=== PATIENT | female | born 1955 | race African-American/Black ===

== ENCOUNTER 2017-09-20 05:45 | Day surgery (SDC) | payer OTHER ==
[2017-09-19 13:54] LABS: BASOPHILS 0.1 % (0-2); EOSINOPHILS 0 % (0-7); HEMATOCRIT 28.6 % (36.0-48.0); HEMOGLOBIN 9.5 g/dL (12-16); IMMATURE GRANULOCYTES 1.4 % (0-5); MCH 28.4 pg (26.0-34.0); MCHC 33.2 g/dL (31.0-37.0); MCV 85.4 fL (80.0-100.0); MEAN PLATELET VOLUME 10.4 fL (7.4-10.4); MONOCYTES 8.9 % (2-11); NEUTROPHILS 79.6 % (40-80); PLATELET COUNT 289 10x3/uL (130-400); RBC 3.35 10x6/uL (4.00-5.40); RDW 14.2 % (11.5-14.5); WBC 9.1 10x3/uL (4.8-10.8)
[2017-09-19 14:05] LABS: INR 0.99 (0.85-1.17); PROTIME 12.7 SECONDS (11.6-15.0)
[2017-09-19 14:32] LABS: ANION GAP 18.1 mmol/L (8-16); CALCIUM 8.5 mg/dL (8.5-10.1); CARBON DIOXIDE 20.6 mmol/L (21.0-32.0); POTASSIUM - SERUM 3.7 mmol/L (3.5-5.1)
[~2017-09-20] VITALS: Ht 171.4 cm; Wt 81.6 kg
--- NOTE | ~2017-09-20 | OP ---
PATIENT NAME: SHILO ARREOLA MEDICAL RECORD: [id number] :51 LOCATION:D[facility] ADMISSION DATE: SURGEON: SERA BARBER MD DATE OF OPERATION: 09/20/2017 REFERRED PHYSICIAN: Ovidio Serrato MD PREOPERATIVE DIAGNOSIS: End-stage renal disease. POSTOPERATIVE DIAGNOSIS: End-stage renal disease. OPERATION PERFORMED: Creation of a Shanta right brachiobasilic arteriovenous fistula as a first stage of a planned 2-stage operation to create a right brachial translocated basilic AV fistula. DESCRIPTION OF PROCEDURE: Under general anesthesia and the regional nerve block per Dr. Swanson, the patient was prepped and draped in sterile manner. Topical nitroglycerin was applied to the arm and forearm and a Brian drain used as a proximal venous tourniquet. The readily apparent veins on gross examination were quite small. I examined her with Duplex ultrasound and I was disappointed to see that the cephalic vein was not usable. The basilic vein was the primary superficial venous drainage and I felt that a brachial to translocated basilic vein AV fistula would be the best choice for this patient. I made an incision on the medial aspect of the arm and elbow and exposed the basilic vein and fully mobilized a segment of about 2 inches in length. It was treated with topical papaverine. The ultrasound exam demonstrated 2 arteries of about the same caliber in the arm, I believe this represents a proximal origin of the radial artery and that vessel was then exposed above the level of the antecubital space. It was in the neurovascular bundle just deep to the median nerve. It was controlled with Silastic loops. The vein was ligated distally and transected and bevelled. It was then flushed with heparinized saline, treated again with topical papaverine. The artery was opened and flushed proximally and distally with heparinized saline and end of vein to side of artery anastomosis with running 7-0 Prolene was completed. The suture line was hemostatic upon release of the occluding clamps and excellent flow developed immediately as evidenced by good continuous pulsatile Doppler signal and strong palpable thrill. The wound was irrigated with Ancef/gentamicin solution and then closed with interrupted inverted 3-0 Vicryl and running intracuticular 4-0 Monocryl. The skin was sealed with Dermabond glue. Cavilon skin prep was used and Tegaderm over Maxorb AG. At that point, the patient was awakened and taken to the recovery room in stable condition. Blood loss during the operation was insignificant and unreplaced and all sponges, instruments, and needles were accounted for. No surgical specimen was submitted for histopathology. PLAN: The patient will go home today and follow up with me in my office in about 2 weeks and I hope to have her back in the operating room in 3-4 weeks for the second stage to complete the translocated basilic vein fistula. She is given a prescription for tramadol to take for postoperative pain. She is to leave the original operative dressing intact and she can shower and wash over with soap and water. TRANSINT:[id number] Voice Confirmation ID: [id number] DOCUMENT ID: [id number] OPERATIVE REPORT [id number] SHILO ARREOLA JAMES MD at 1410 CC: [id number] DICTATION DATE: 09/20/17 1144 [place] TOWER LOADER: 09/20/17 1212 [facility] 09/20/17 [place] [address] [place] [address]
[~2017-09-20 05:45] MED LIST: CATAPRES0.2 MG PO; CELEXA20 MG PO; COZAAR100 MG PO; METOPROLOL TART50 MG PO; NORVASC10 MG PO; SODIUM BICARBO650 MG PO; VELTASSA8.4 GM PO; VITAMIN D31000 UNI2 PO
[2017-09-20] MEDS ORDERED: FEXOFENADINE HC60 MG PO (06:48)
[2017-09-20] MEDS ORDERED: BENADRYL25 MG PO (06:48)
[2017-09-20 06:55] VITALS: BP 151/76; BMI 27.8
[2017-09-20] MEDS ORDERED: ULTRAM50 MG PO (09:55)
[2017-09-27 08:38] VITALS: Ht 171.4 cm; Wt 81.6 kg
== END 2017-09-20 11:35 | disposition home or self-care (01) ==
LOC: D.OPS 05:45
PROVIDERS: Surgery
DX: I12.0 Hypertensive chronic kidney disease with stage 5 chronic kidney disease or end stage renal disease (principal); N18.6 End stage renal disease

== ENCOUNTER 2017-09-24 20:18 | Inpatient (IN) | payer OTHER ==
[~2017-09-24] VITALS: Ht 171.4 cm; Wt 87.7 kg
[~2017-09-24 20:18] MED LIST changes: +BENADRYL25 MG PO; +FEXOFENADINE HC60 MG PO; +ULTRAM50 MG PO
[2017-09-25] VITALS (7 sets, daily range): BP systolic 115–152; BP diastolic 53–85; BMI 27.8
[2017-09-25 03:40] LABS: APPEARANCE HAZY (CLEAR); BILIRUBIN NEGATIVE (NEGATIVE); COLOR YELLOW (YELLOW); GLUCOSE NEGATIVE (NEGATIVE); KETONE NEGATIVE (NEGATIVE); NITRITE NEGATIVE (NEGATIVE); PROTEIN 3+ mg/dL (NEGATIVE); SPECIFIC GRAVITY 1.015 (1.005-1.020); UROBILINOGEN NORMAL (NORMAL)
[2017-09-25 03:43] LABS: AMORPHOUS SEDIMENT <1+ /lpf (NONE SEEN); BACTERIA MODERATE /hpf (NONE SEEN); GRANULAR CAST 0-5 /lpf (NONE SEEN); HYALINE CAST 0-5 /lpf (NONE SEEN); RED CELLS - URINE OCC /hpf (0-5)
[2017-09-25 06:37] LABS: BASOPHILS 0.5 % (0-2); EOSINOPHILS 3.3 % (0-7); HEMATOCRIT 23.4 % (36.0-48.0); HEMOGLOBIN 7.6 g/dL (12-16); IMMATURE GRANULOCYTES 0.5 % (0-5); LYMPHOCYTES 25.8 % (15-50); MCHC 32.5 g/dL (31.0-37.0); MCV 86.3 fL (80.0-100.0); MONOCYTES 11.1 % (2-11); NEUTROPHILS 58.8 % (40-80); PLATELET COUNT 197 10x3/uL (130-400); RBC 2.71 10x6/uL (4.00-5.40); RDW 15.1 % (11.5-14.5); WBC 4.2 10x3/uL (4.8-10.8)
[2017-09-25 10:29] LABS: ANION GAP 17.4 mmol/L (8-16); CALCIUM 7.3 mg/dL (8.5-10.1); CARBON DIOXIDE 18.6 mmol/L (21.0-32.0); CREATININE - SERUM 5.4 mg/dL (0.6-1.3)
[2017-09-25 12:29] LABS: APTT 24.7 SECONDS (22.8-39.4); INR 1.11 (0.85-1.17); PROTIME 13.9 SECONDS (11.6-15.0)
[2017-09-25 12:31] LABS: D-DIMER-QUANTITATIVE 2.22 ug/mLFEU (0.20-0.54)
[2017-09-25 13:03] LABS: CKMB 2.2 U/L (0.0-3.6); CREATINE KINASE 138 UL (21-215); MAGNESIUM - SERUM 2.2 mg/dL (1.8-2.4)
[2017-09-25 13:05] LABS: TROPONIN-I 1.555 ng/mL (0.000-0.060)
[2017-09-25 13:58] LABS: % SATURATION 15 % (15-55); IRON 36 ug/dl (35-150); TOTAL IRON BIND CAPACITY 229 ug/dl (260-445); UNSAT IRON BIND CAPACITY 193 ug/dl (150-375)
[2017-09-25 15:39] LABS: CHOL - HDL RATIO 5.5 ratio (2.3-4.1); LDL-HDL RATIO 3.8 ratio (1.5-3.5)
[2017-09-25 18:59] LABS: CKMB 1.9 U/L (0.0-3.6); CREATINE KINASE 102 UL (21-215)
[2017-09-25 19:01] LABS: TROPONIN-I 1.297 ng/mL (0.000-0.060)
[2017-09-26 00:45] LABS: CKMB 2.7 U/L (0.0-3.6); CREATINE KINASE 151 UL (21-215); TROPONIN-I 1.588 ng/mL (0.000-0.060)
[2017-09-26 05:31] LABS: BASOPHILS 0.2 % (0-2); EOSINOPHILS 1.8 % (0-7); IMMATURE GRANULOCYTES 0.5 % (0-5); LYMPHOCYTES 15.8 % (15-50); MCH 28.6 pg (26.0-34.0); MCHC 33.3 g/dL (31.0-37.0); MCV 85.7 fL (80.0-100.0); MEAN PLATELET VOLUME 9.9 fL (7.4-10.4); MONOCYTES 10.3 % (2-11); NEUTROPHILS 71.4 % (40-80); PLATELET COUNT 208 10x3/uL (130-400); RDW 14.7 % (11.5-14.5)
[2017-09-26 05:52] LABS: INR 1.06 (0.85-1.17); PROTIME 13.4 SECONDS (11.6-15.0)
[2017-09-26 06:04] LABS: ANION GAP 18.4 mmol/L (8-16); CALCIUM 8.3 mg/dL (8.5-10.1); CARBON DIOXIDE 20.3 mmol/L (21.0-32.0); CREATININE - SERUM 5.4 mg/dL (0.6-1.3); PHOSPHOROUS 3.8 mg/dL (2.5-4.9); POTASSIUM - SERUM 3.7 mmol/L (3.5-5.1)
[2017-09-26 06:22] LABS: WBC 5.7 10x3/uL (4.8-10.8)
[2017-09-26 08:34] VITALS: BP 181/74
[2017-09-26 12:24] VITALS: BP 159/61
[2017-09-26 13:58] VITALS: BMI 29.8
[2017-09-26 16:34] VITALS: BP 149/61
[2017-09-27] VITALS (8 sets, daily range): BP systolic 124–188; BP diastolic 62–84; Ht 171.4 cm; Wt 87.7 kg
[2017-09-27 05:39] LABS: BASOPHILS 0.1 % (0-2); EOSINOPHILS 2.1 % (0-7); HEMATOCRIT 22.6 % (36.0-48.0); IMMATURE GRANULOCYTES 0.4 % (0-5); MCH 28.4 pg (26.0-34.0); MCHC 33.2 g/dL (31.0-37.0); MCV 85.6 fL (80.0-100.0); MEAN PLATELET VOLUME 10.3 fL (7.4-10.4); MONOCYTES 8.4 % (2-11); PLATELET COUNT 196 10x3/uL (130-400); RBC 2.64 10x6/uL (4.00-5.40); RDW 14.8 % (11.5-14.5)
[2017-09-27 05:47] LABS: HEMOGLOBIN 7.5 g/dL (12-16); WBC 7.7 10x3/uL (4.8-10.8)
[2017-09-27 05:55] LABS: ANION GAP 16.4 mmol/L (8-16); CALCIUM 7.9 mg/dL (8.5-10.1); CARBON DIOXIDE 23.4 mmol/L (21.0-32.0); CREATININE - SERUM 5.3 mg/dL (0.6-1.3); POTASSIUM - SERUM 3.8 mmol/L (3.5-5.1)
[2017-09-27] MEDS ORDERED: LASIX40 MG PO (15:15)
== END 2017-09-27 16:38 | disposition home or self-care (01) | DRG 291 ==
LOC: D.M2 20:18
PROVIDERS: Internal Medicine Nephrology
DX: I13.2 Hypertensive heart and chronic kidney disease with heart failure and with stage 5 chronic kidney disease, or end stage renal disease (principal); I50.33 Acute on chronic diastolic (congestive) heart failure; N18.5 Chronic kidney disease, stage 5; N17.9 Acute kidney failure, unspecified; N39.0 Urinary tract infection, site not specified; J81.1 Chronic pulmonary edema; D64.9 Anemia, unspecified

== ENCOUNTER 2017-10-19 02:15 | Inpatient (IN) | payer OTHER ==
[~2017-10-19] VITALS: Ht 171.4 cm; Wt 79.6 kg
--- NOTE | ~2017-10-19 | TEE ---
PATIENT:SHILO ARREOLA MEDICAL RECORD: [id number] LOCATION:[place] [address] AGE OF PATIENT: 62 ADMISSION DATE: 10/19/17 SEX: F REFERRING PHYSICIAN: INTERPRETING PHYSICIAN: MELISSA COLORADO MD TRANSESOPHAGEAL ECHOCARDIOGRAM Date: 11/04/17 JAIRON CHARGE Y INDICATIONS: CABG & AVR PREMEDICATIONS: PATIENT'S RESPONSE PROCEDURE DOPPLER MEASUREMENTS: LVIT LA PA 171 RA LVOT RVOT 115 Asc. Ao AV Gradient Peak AV Mean AV Area MV Gradient Peak MV Mean MV Area INTERPRETATION: LVD: 3.7 LVS: 1.4 Doppler: 2-D: COLOR FLOW DOPPLER NORMAL SALINE STUDY: MISCELLANOUS: DIAGNOSIS: PLAN: Mrp Controller:1 Dr. [place] Hardwood Floor Installer: Julisa CHESTER COMMENTS: DATE OF SERVICE: PROCEDURE: Transesophageal echo evaluation of valvular structures during bypass surgery and mitral valve replacement. FINDINGS: 1. Left ventricular chamber size is within normal limits. Left ventricular systolic function is normal. Overall ejection fraction is estimated at 55%. 2. Left atrium, right atrium, and right ventricle chamber sizes are TRANSESOPHAGEAL ECHOCARDIOGRAM REPORT [id number] SHILO ARREOLA [id number] dilated. 3. Valvular structures have normal structure and motion. 4. Doppler interrogation reveals severe mitral regurgitation. This is not a new finding. The patient is scheduled for valve replacement. Else ashley, Doppler interrogation only reveals mild tricuspid regurgitation. No other valvular insufficiency or stenosis. 5. No evidence of pericardial effusion or left ventricular thrombus. TRANSINT:[id number] Voice Confirmation ID: [id number] DOCUMENT ID: [id number] at 1642 CC: [id number] DICTATION DATE: 11/06/17 1156 ENERGY CONSERVATION SPECIALIST: 11/06/17 1311 ADM IN [place] [id number] [place] [address]
--- NOTE | ~2017-10-19 | PN ---
PATIENT:SHILO ARREOLA MEDICAL RECORD: [id number] LOCATION:[facility] Alvares.CV0 ADMISSION DATE: 10/19/17 PROGRESS NOTE DATE OF SERVICE: 10/27/2017 This is a 62-year-old female who has a history of renal failure. SUBJECTIVE: The patient was admitted with increasing shortness of breath and she was noted to have right pleural effusion. The patient had thoracentesis with improvement. The patient was transferred from to the ICU to medical floor. There is no cough and there is no shortness of breath. There is no fever. There is no orthopnea. The patient's chest x-ray after thoracentesis shows significant improvement. PHYSICAL EXAMINATION: GENERAL: Reveals well-developed, well-nourished female, who is in no acute distress. VITAL SIGNS: Temperature 98.8, heart rate of 66, respiratory rate of 16, blood pressure 185/45, and saturation is 100%. HEENT: Unremarkable. NECK: Supple. There is no adenopathy. There is no stridor. CHEST: Clear and coughing. There are no wheezes or crackles. CARDIAC: Shows no jugular venous distention, murmur or gallops. ABDOMEN: Benign. EXTREMITIES: There is no clubbing, cyanosis or edema. LABORATORY DATA: Showed white count of 5.9, hemoglobin 10.3 and platelet count is 106,000. Chemistries remarkable for creatinine of 4.1, BUN of 39. Potassium is 4. ASSESSMENT: 1. Chronic renal disease, stage IV. 2. Right pleural effusion, probably secondary to volume overload. PLAN: We will sign off on this patient. If there is any problem, please call the pulmonary team. TRANSINT:[id number] Voice Confirmation ID: [id number] DOCUMENT ID: [id number] DARRYL FOSTER at 0752 CC: [id number] DICTATION DATE: 10/27/171744 MOLD MAKER: 10/27/172057 [place] [address]
--- NOTE | ~2017-10-19 | TEE ---
PATIENT:SHILO ARREOLA MEDICAL RECORD: [id number] LOCATION:[facility] D230 AGE OF PATIENT: 62 ADMISSION DATE: 10/19/17 SEX: F REFERRING PHYSICIAN: INTERPRETING PHYSICIAN: NOHEMI BRINK MD TRANSESOPHAGEAL ECHOCARDIOGRAM Date: 10/21/17 JAIRON CHARGE Y INDICATIONS: MR, PREMEDICATIONS: PATIENT'S RESPONSE PROCEDURE DOPPLER MEASUREMENTS: LVIT LA PA RA LVOT RVOT Asc. Ao AV Gradient Peak AV Mean AV Area MV Gradient Peak MV Mean MV Area INTERPRETATION: Doppler: 2-D: COLOR FLOW DOPPLER NORMAL SALINE STUDY: MISCELLANOUS: DIAGNOSIS: PLAN: Insurance Plan Specialist:3 Dr. Paez Curatorial Specialist: Maxim GOMEZ COMMENTS: DATE OF SERVICE: 10/21/2017 TRANSESOPHAGEAL NOTE DESCRIPTION OF PROCEDURE: After general sedation via TIVA via anesthesia, transesophageal Omniplane probe was placed in the distal esophagus and proximal stomach without difficulty. FINDINGS: LVH is present. LV internal dimensions are normal. Wall motion is TRANSESOPHAGEAL ECHOCARDIOGRAM REPORT [id number] SHILO ARREOLA normal. EF is greater than 55%. Aortic valve is tricuspid with good valve excursion, only trivial AI. Left atrium appears upper limits of normal, mildly dilated. Left atrial appendage is well visualized with good contractility. The mitral valve shows marked prolapse of the anterior leaflet and severe MR. On multiple views seen, do not see any prolapse of chordae into the left atrium. Right-sided chambers appear grossly normal. Mild TR by color flow imaging. At the end of procedure, the transesophageal Omniplane probe was turned posterior and this showed minimal atherosclerotic debris in the descending aorta. IMPRESSION: Severe MR, this despite improvement in pressures and close to euvolemic. Suspect this will continue to be an intermittent issue despite best therapies and probably best served with valve repair/replacement. CT surgery was consulted for this purpose. TRANSINT:[id number] Voice Confirmation ID: [id number] DOCUMENT ID: [id number] at 1116 CC: [id number] DICTATION DATE: 10/21/17 09 CUSTODIAL MAINTENANCE WORKER: 10/21/17 09 ADM IN [place] [id number] [place] [address]
--- NOTE | ~2017-10-19 | PN ---
PATIENT:SHILO ARREOLA MEDICAL RECORD: [id number] LOCATION:D. D.210 ADMISSION DATE: 10/19/17 PROGRESS NOTE DATE OF SERVICE: 10/25/2017 SUBJECTIVE: This is a 62-year-old female who was admitted with increasing shortness of breath. The patient was noted to have large right pleural effusion. The patient had thoracentesis today with aspiration of 1.3 liters of clear fluid. She is feeling better afterwards. There is no fever or chills. There is no pain. PHYSICAL EXAMINATION: GENERAL: Reveals a middle-aged female who is in no acute distress. VITAL SIGNS: Temperature 98.6, heart rate of 66, respiratory rate of 18, blood pressure 107/88, saturation is 97. SHEENT: Unremarkable. The patient is normocephalic. Pupils are equal and reactive. NECK: Supple. CHEST: Shows clear lungs. No wheezes or crackles. There is no chest wall tenderness. No accessory muscle use. CARDIAC: Shows no jugular venous distention, murmur, or gallop. ABDOMEN: Benign. EXTREMITIES: Show no clubbing, cyanosis, or edema. LABORATORY DATA: Showed white count of 6.1, hemoglobin of 9.9, and platelet count 158,000. Arterial blood gas; pH 7.42, pCO2 of 42, pO2 of 108 on 5 liters. Chemistry is normal. Creatinine is 4.2 and BUN is 36. ASSESSMENT: 1. Acute on chronic kidney injury. 2. Known pleural effusion. Etiology is unknown. Labs will be sent from interventional radiology. 3. Acute respiratory failure with hypoxia. She will need bronchodilators. She will need repeat chest x-ray. DISCUSSION: NEUROPSYCHIATRY: The patient's mental status is improving. There are no focal signs. CARDIOVASCULAR: There are no issues at this time. PULMONARY/RESPIRATORY: The patient has a large pleural effusion, etiology is unknown. It is unlikely this will be from congestive heart failure. PLAN: 1. Send for cultures as well as cytology of pleural fluid. 2. Continue antibiotics. 3. Continue bronchodilators. 4. DVT prophylaxis with Lovenox. Total time is 30 minutes. TRANSINT:[id number] Voice Confirmation ID: [id number] DOCUMENT ID: [id number] PROGRESS NOTE [id number] SHILO ARREOLA DARRYL FOSTER at 0827 CC: [id number] DICTATION DATE: 10/25/17 1516 BEATER ROOM HELPER: 10/25/17 1658 ADM IN [place] [id number] [place] [id number]
--- NOTE | ~2017-10-19 | MORECARE ---
CASE MANAGEMENT DISCHARGE SUMMARY PATIENT: REUBEN GIL UNIT: [id number] ADM DATE: 10/19/17 AGE: 62 : [birth year] SEX: F ROOM/BED: D.[facility] AUTHOR: CASE, BOAT AND PLANT UTILITY SUPERVISOR PHYSICIAN: REFERRING PHYSICIAN: ELENA HOFFMAN MD DATE OF SERVICE: 10/19/17 Discharge Plan Patient Name: [facility]UBEN [facility]IL [facility] [facility] 1955 Planned Disposition: Home or Self Care Anticipated Discharge Date: Discharge Date: Expected LOS: Initial Reviewer: [id number] Initial Review Date: 10/19/2017 Generated: 10/19/17 5:31 pm DCPIA - Discharge Planning Initial Assessment Updated by [email or web address]: Cindy Petersen on 10/19/17 4:29 pm * Is the patient Alert and Oriented? Yes * How many steps to enterexit or inside your home? 4-5 w/rail * PCP Dr. Nieves * Pharmacy [facility] * Preadmission Environment Home with Family * ADLs Total Dependent * Equipment None * Other Equipment NA * List name and contact numbers for known caregivers / representatives who currently or will assist patient after discharge: Reuben Gil (spouse) [phone] Severiano Alfaro (son) [phone] * Verbal permission to speak to the caregivers and representatives has been obtained from the patient. Yes * Community resources currently utilized None * Please name any agencies selected above. NA * Additional services required to return to the preadmission environment? No * Can the patient safely return to the preadmission environment? Yes * Has this patient been hospitalized within the prior 30 days at any hospital? Yes Patient Name: REUBEN GIL Page [id number] All edits/amendments must be made on the electronic document DICTATION DATE: 10/19/17 1630 DESKTOP ANALYST: 10/19/17 1630 RPT#: [id number] DC DATE: STATUS: ADM IN [facility] [address] [place] [address] END OF REPORT
--- NOTE | ~2017-10-19 | TEE ---
PATIENT:SHILO ARREOLA MEDICAL RECORD: [id number] LOCATION:[place] [address] AGE OF PATIENT: 62 ADMISSION DATE: 10/19/17 SEX: F REFERRING PHYSICIAN: INTERPRETING PHYSICIAN: MELISSA BLACKWELL MD TRANSESOPHAGEAL ECHOCARDIOGRAM Date: 10/31/17 JAIRON CHARGE Y INDICATIONS: CABG & AVR PREMEDICATIONS: PATIENT'S RESPONSE PROCEDURE DOPPLER MEASUREMENTS: LVIT LA PA RA LVOT RVOT Asc. Ao AV Gradient Peak AV Mean AV Area MV Gradient Peak MV Mean MV Area INTERPRETATION: LVD: 3.7 LVS: 1.4 Doppler: 2-D: COLOR FLOW DOPPLER NORMAL SALINE STUDY: MISCELLANOUS: DIAGNOSIS: PLAN: Plastic Card Grader Cardroom:3 Dr. Paez [place] Tour Guide: Maxim GOMEZ COMMENTS: DATE OF SERVICE: 10/31/2017 PROCEDURE: Transesophageal echo evaluation of valvular structures during bypass surgery and mitral valve replacement. FINDINGS: 1. Left ventricular chamber size is within normal limits. Left ventricular systolic function is normal. Overall ejection fraction estimated at 55%. 2. Left atrium, right atrium, and right ventricle chamber sizes are moderately TRANSESOPHAGEAL ECHOCARDIOGRAM REPORT [id number] SHILO ARREOLA dilated. 3. Valvular structures have normal structure and motion. 4. Doppler interrogation reveals severe mitral regurgitation. This is not a new finding. The patient is scheduled for a valve replacement of the mitral valve. The remaining valvular structures else ashley demonstrate only trace aortic insufficiency, mild tricuspid regurgitation, no other valvular insufficiency or stenosis. 5. No evidence of pericardial effusion or left ventricular thrombus. TRANSINT:[id number] Voice Confirmation ID: [id number] DOCUMENT ID: [id number] at 1752 CC: [id number] DICTATION DATE: 10/31/17 1050 CREDENTIALER: 10/31/17 1302 ADM IN [facility] [address] [place] [address]
--- NOTE | ~2017-10-19 | PN ---
PATIENT:SHILO ARREOLA MEDICAL RECORD: [id number] LOCATION:D.M2 D.210 ADMISSION DATE: 10/19/17 PROGRESS NOTE DATE OF SERVICE: 10/24/2017 SUBJECTIVE: This is a 62-year-old female who has history of chronic renal failure, was admitted for respiratory failure with hypoxia, was found to have large right pleural effusion and pulmonary infiltrates, mostly on the left. She was intubated and now is on as needed BiPAP and hypothermia. She has no fever. Her chest x-ray today has shown worsening of the right airspace disease with no change in pleural effusions. She has had high BNP secondary to CHF with volume overload. She is also being followed by nephrology. The patient had an uneventful night. No fever or chills. PHYSICAL EXAMINATION: GENERAL: Reveals middle-aged female who is in no acute distress. VITAL SIGNS: Temperature 97.8, heart rate of 78, respiratory rate of 18, blood pressure 123/63, saturating 100%. HEENT: Unremarkable. The patient is normocephalic. Pupils are equal and reactive. NECK: Supple. There is no adenopathy. Trachea is midline. There is no thyromegaly. CHEST: Shows decreased breath sounds on the left with mild crackles on the right. No accessory muscle use. CARDIAC: Shows no jugular venous distention, murmur, or gallop. ABDOMEN: Benign without tenderness. EXTREMITIES: Show no clubbing, cyanosis, or edema. NEUROLOGIC: There are no focal signs. Lab exam showed CBC; white count 5.9, hemoglobin 10.2, platelet count is 145,000. Chemistry is remarkable for potassium of 3.9, creatinine is 5.3, BUN is 55. Troponin was 0.75 two days ago. Chest x-ray shows slight worsening of airspace disease in the right lung. Arterial blood gas yesterday showed pH 7.41, pCO2 of 42, pO2 is 108. ASSESSMENT: 1. Acute respiratory failure with hypoxia. 2. Chronic renal failure. 3. Pulmonary edema with left pleural effusion. 4. The patient's failure may be due to valvular disease as well as renal failure. DISCUSSION: NEUROPSYCHIATRY: The patient's mental status is slightly increased. This may be due to azotemia. There are no focal signs. CARDIOVASCULAR: The patient has pulmonary edema, possible diastolic dysfunction, or valvular heart disease. PULMONARY/RESPIRATORY: The patient is on bronchodilators. PLAN: The patient may need dialysis. Continue BiPAP as needed and hypotherm for hypoxia. TRANSINT:[id number] Voice Confirmation ID: [id number] DOCUMENT ID: [id number] PROGRESS NOTE [id number] SHILO ARREOLA AUGUSTINE K at 0827 CC: [id number] DICTATION DATE: 10/24/17 1631 SUPERVISOR OF GUIDANCE AND TESTING: 10/24/17 2348 ADM IN [place] [address] [place] [address]
--- NOTE | ~2017-10-19 | OP ---
PATIENT NAME: SHILO ARREOLA MEDICAL RECORD: [id number] :51 LOCATION:[facility]04 ADMISSION DATE:10/19/17 SURGEON: NOHEMI BRINK MD DATE OF OPERATION: 10/24/2017 PROCEDURE: Left heart catheterization, selective coronary angiography, right femoral artery approach. CATHETERS: A 5-[place] Islander sheath, 5/4 left and right Hayden, 5/4 pig. Procedure was well tolerated. The patient was returned to the [place]. Sheath removed. ExoSeal device placed. FINDINGS: Left ventriculography in 30-degree OCAMPO view: Normal wall motion, normal systolic function, 3-4+ MR. CORONARY ANATOMY: LEFT MAIN: Left main is free of disease. LAD: Has an 80% stenosis in its mid portion, good target distally. CIRCUMFLEX: More proximally has a 90% stenosis, good target distally. RIGHT CORONARY ARTERY: Dominant artery, totally occluded, fills via left to right collaterals. IMPRESSION: Severe MR, multivessel coronary artery disease. TRANSINT:[id number] Voice Confirmation ID: [id number] DOCUMENT ID: [id number] NOHEMI BRINK MD at 1254 CC: [id number] DICTATION DATE: 10/24/17 1113 LABORER ORCHARD: 10/24/17 1208 ADM IN [place] [address] [place] [address]
--- NOTE | ~2017-10-19 | EC ---
PATIENT:SHILO ARREOLA DATE OF SERVICE: 10/19/17 SEX: F MEDICAL RECORD: [id number] DATE OF : [birth year] LOCATION:[place] [address] AGE OF PATIENT: 62 ADMISSION DATE: 10/19/17 REFERRING PHYSICIAN: INTERPRETING PHYSICIAN: MELISSA COLORADO MD ECHOCARDIOGRAM REPORT ECHO CHARGES 5 ECHO LIMITED Date: 11/04 CLINICAL DIAGNOSIS: ASSESS LV FUN AND FOR PERICARIDAL EFFUSION POST VALVE ECHOCARDIOGRAPHIC MEASUREMENTS (adult normal given) AC root (d.<3.7cm) cm LV Septum d (<1.2 cm> 1.5 cm Valve Excursion cm LV Septum (systole) 1.8 cm Left Atria (s.<4.0cm> 4.6 cm LVPW d(<1.2cm) 1.6 cm RV (d.<2.3cm) 3.5 cm LVPW (sytole) 1.9 cm LV diastole(<5.6CM) 5.8 cm MV E-F(>70mm/sec) cm LV systole 3.4 cm LVOT Diameter cm MV exc.(>10mm) cm Est.ejection fraction (50-75%) % DOPPLER: LVIT cm/sec A cm/sec E cm/sec LA cm/sec RVSP 22 mmHg LVOT cm/sec AOP1/2T m/s Asc. Ao cm/sec RVOT 115 cm/sec RA cm/sec PA 171 cm/sec AV Gradient Peak mmHg AV Mean mmHg AV Area cm MV Gradient Peak mmHg MV Mean mmHg MV Area cm COMMENTS: Soft Metals Hand Engraver: 2 ANGELIKA CHESTER Electrician Journeyman Wireman: 1 Dr. [place] TAPE# PACS Pericardial Effusion N DATE OF SERVICE: 11/04/2017 DATE OF SERVICE: 11/04/2017 PROCEDURE: Limited echocardiogram for ejection fraction. FINDINGS: Left ventricular chamber size is within normal limits. Left ventricular systolic function is normal. Overall ejection fraction estimated 60%. ECHOCARDIOGRAM REPORT [id number] SHILO ARREOLA TRANSINT:[id number] Voice Confirmation ID: [id number] DOCUMENT ID: [id number] MELISSA COLORADO MD at 1642 CC: [id number] DICTATION DATE: 11/04/17 1442 HARNESS REPAIRER: 11/04/17 1528 ADM IN [facility] [address] [place] [address]
--- NOTE | ~2017-10-19 | PN ---
PATIENT:SHILO ARREOLA MEDICAL RECORD: [id number] LOCATION:S[facility] D.CV0 ADMISSION DATE: 10/19/17 PROGRESS NOTE DATE OF SERVICE: 11/08/2017 SUBJECTIVE: This is a 62-year-old female who has a history of end-stage renal disease. The patient also has chronic obstructive pulmonary disease. She has been having productive cough. She has been treated with bronchodilators as well as antibiotics. She had nasal congestion yesterday and she was given saline nasal spray with improvement in breathing. She has had improved oxygenation. The patient had a fistula placed, we are waiting maturation to start hemodialysis. She has had a diastolic dysfunction. She also had coronary artery bypass surgery and mitral valve replacement for severe MR. She had bibasilar pneumonia, infiltrates concerning for pneumonia. The patient had an uneventful night. No fever or chills. PHYSICAL EXAMINATION: GENERAL: Reveals a middle-aged female, obese, in no acute distress. VITAL SIGNS: Temperature 98.1, heart rate 76, respiratory rate 20, blood pressure 127/56, saturation 95% on room air. SHEENT: Unremarkable. Nares normal, moistened. NECK: Supple. There is no adenopathy. Trachea is midline. CHEST: Showed occasional crackles or coughing. HEART: Shows no jugular venous distention. No murmur or gallops. ABDOMEN: Benign. EXTREMITIES: There is no clubbing, cyanosis or edema. LABORATORY DATA: White count of 6.4, hemoglobin 10.1, platelet count is 218,000. Chemistries remarkable for creatinine of 5.5, pO2 of 45. Albumin is 2.4. ASSESSMENT: 1. End-stage renal disease, routine hemodialysis. 2. Right basilar pneumonia, on antibiotics. 3. Acute bronchitis secondary to postnasal drainage. The patient is currently on Flonase as well as saline nasal spray. 4. Hypertension. PLAN: 1. Continue antibiotics. 2. Continue bronchodilators. 3. Follow up chest x-ray in the morning. 4. DVT prophylaxis. TRANSINT:[id number] Voice Confirmation ID: [id number] DOCUMENT ID: [id number] PROGRESS NOTE [id number] SHILO ARREOLA DARRYL FOSTER at 1236 CC: [id number] DICTATION DATE: 11/08/171916 FIBER OPTICS TECHNICIAN: 11/09/17 0357 ADM IN [facility] [address] [place] [id number]
--- NOTE | ~2017-10-19 | OP ---
PATIENT NAME: SHILO ARREOLA MEDICAL RECORD: [id number] :51 LOCATION:D.CVI D.CV08 ADMISSION DATE:10/19/17 SURGEON: ALEX BLANCO MD DATE OF OPERATION: 10/31/2017 SURGEON: Alex Blanco MD FLOTATION TENDER: Hong Howe MD ANESTHESIA: General endotracheal, Dr. Wilson. OPERATION PERFORMED: 1. Coronary artery bypass. a. Left internal thoracic to left anterior descending. b and c. Reverse saphenous vein graft to the obtuse marginal 1, sequential obtuse marginal 2. 2. Mitral valvuloplasty and annuloplasty utilizing a [address] [employer] saddle ring. PREOPERATIVE DIAGNOSES: 1. Severe coronary artery disease with angina equivalent shortness of breath. 2. Mitral regurgitation. FINDINGS OF THE OPERATION: The right coronary artery was totally occluded and not graftable. The second and first obtuse marginal coronary arteries were of good quality vessels for grafting as was the left anterior descending; however, it was intramyocardial. The reverse saphenous vein graft from the right leg was excellent for grafting as was the left internal thoracic artery. ESTIMATED BLOOD LOSS: Cell Saver was used. The patient was anemic preoperatively due to her renal disease. DESCRIPTION OF PROCEDURE: After informed consent, adequate preoperative medication evaluation, the patient was brought to the operating room and placed on the table in the supine position. After induction of general endotracheal anesthesia and application of appropriate monitoring devices, the chest, neck, abdomen, and both legs were prepped and draped in a sterile field, utilizing Betadine scrub, alcohol, and Betadine solution. A Betadine-impregnated drape was also used. Saphenous vein was harvested from right leg and prepared for reverse saphenous vein grafting. The leg was closed over drains utilizing 3-0 Vicryl and skin dayana. A median sternotomy incision was used and dissection carried down to the fascia. Hemostasis was maintained with electrocautery. Sternum was divided. Innominate vein was identified and protected. Left internal thoracic was taken down and prepared for grafting. The patient was given a calculated dose of heparin, cannulated in the standard fashion utilizing one aortic, one 2-stage cannula in atrium and inferior vena cava. Antegrade cardioplegia cannula was placed in the ascending aorta and a retrograde cannula placed in the coronary sinus. The patient was placed on cardiopulmonary bypass, cooled to 32 degrees centigrade. A cross clamp was placed just proximal to the aortic cannula. The patient was given cardioplegic solution through the aortic root. The patient was given cold intermittent cardioplegic solution throughout the procedure through the root, retrogradely or through the grafts or a OPERATIVE REPORT [id number] SHILO ARREOLA combination of all 3. The right coronary artery was not graftable. The first vessel to be grafted was the second obtuse marginal, it was grafted end-to-side utilizing a running 7-0 Prolene suture. Graft was measured to first obtuse marginal and a [id number]-ca-[id number] anastomosis fashioned utilizing running 7-0 Prolene suture. The graft was then connected to the cardioplegia line. The left internal thoracic was brought through a hole in pericardium, sutured left anterior descending end-to-side utilizing a running 8-0 Prolene suture. Pedicle was attached to epicardium with 6-0 Prolene suture. Next, the atriotomy was extended and the valve examined and close examination of the valve demonstrated an enlarged annulus and a ruptured cord in the anterior and posterior leaflets in the medial commissure. The circumferential annuloplasty sutures were placed, then placed through the sewing ring and lowered into position and secured. The valve was tested. There was leaking at the medial commissure. These were repaired with neochordae and a small, short stitch approximately 3 mm away from the annulus. There was no leak. A vent was placed across the valve and the atriotomy partially closed with 2 layers of running 3-0 Prolene suture. Next, the proximal anastomosis was fashioned from the vein graft to the ascending aorta end-to-side utilizing running 6-0 Prolene suture. All maneuvers to remove trapped air were performed. The patient was given warm cardioplegic reperfusion and controlled reperfusion. The patient rewarmed to 37 degrees centigrade. Two atrial and 2 ventricular pacing wires were placed in the heart, brought out through the epigastric area. The vent was then removed after all maneuvers to remove trapped air were performed and the atriotomy closed with 3-0 Prolene sutures. All maneuvers to remove trapped air were performed. The patient rewarmed and weaned from cardiopulmonary bypass. After being stable off bypass, she was given a calculated dose of protamine to reverse the heparin. Hemostasis was achieved. A #40 right angle and #36 chest tubes were brought in through the epigastric area. Two separate Mookie tubes were placed in the right and left hemithorax. Chest was again irrigated. Instrument count and sponge count were correct times 2. Chest closed in layers utilizing #7 wire on the sternum, #2 Vicryl on linea alba and pectoralis fascia. Subcutaneous tissue was approximated with 3-0 Vicryl and skin approximated with skin dayana. Sterile dressings were applied. The patient tolerated the procedure well and was transferred to cardiovascular recovery in critical, but stable condition. TRANSINT:[id number] Voice Confirmation ID: [id number] DOCUMENT ID: [id number] ALEX BLANCO MD at 1235 CC: [id number] DICTATION DATE: 10/31/17 1622 PLANT AND MACHINERY VALUER: 10/31/17 1727 DIS IN 11/15/17 [address] [place] [address]
--- NOTE | ~2017-10-19 | HEMODYNAMI ---
PATIENT:SHILO ARREOLA MEDICAL RECORD: [id number] : 51 [facility] [id number] ADMISSION DATE: 10/19/17 Generatedon:10/21/20179:02 Patient name: SHILO ARREOLA Patient #: [id number] SSN: : 1955 Date of study: 10/21/2017 Page: Of Hemodynamic Procedure Report Patient Data Patient Demographics Procedure consent was obtained First Name: SHILO Gender: Female Last Name: MAXWELL : 1955 Middle Initial: MACKENZIE Age: 62 year(s) Patient #: [id number] Race: Black Additional ID: [id number] Contact details [address]: [address] [place] [address] State: [place] City: [place] Zip code: [address] Admission Admission Data Admission Date: 10/19/2017 Admission Time: 3:57 Room #: 2125 Procedure Procedure Types Cath Procedure Diagnostic Procedure JAIRON Procedure Description Procedure Date Procedure Date: 10/21/2017 Procedure Start Time: 8:35 Procedure End Time: 8:55 Procedure Staff Name Function Carroll Hill MD Performing Physician Sandy García RT Monitor Keara Petty RN Nurse Hedy Clark CRNA Additional personnel Dragan Lynn Channel Marketing Specialist Paulino Poe RT Monitor Procedure Data Cath Procedure Fluoroscopy Diagnostic fluoroscopy Total fluoroscopy Time: 0 time: 0 min min Diagnostic fluoroscopy Total fluoroscopy dose: 0 dose: 0 mGy mGy Contrast Material Contrast Material Type Amount (ml) Isovue 300 0 Estimated blood loss: 0 ml Procedure Complications No complications Procedure Medications Medication Administration Route Dosage Oxygen etCO2 Nasal cannula 3 l/min Hurricaine [place] P.O. 1 Sprays Refer to Anesthesia Notes for Sedation Medications Hemodynamics Rest Heart Rate: 83 (bpm) Snapshots Pre Cath Intra NCS Post Cath Vital Signs Time Heart Resp SPO2 etCO2 NIBP (mmHg) Rhythm Pain Sedation Rate (ipm) (%) (mmHg) Status Level (bpm) 8:23:01 81 36 96 19.5 185/89(139) NSR 0 (11) 10(A) , No pain 8:28:00 84 29 93 15 Measuring NSR 0 (11) 10(A) , No pain 8:28:22 85 18 93 15 212/92(159) NSR 0 (11) 10(A) , No pain 8:32:55 7 22 92 19.5 175/77(119) NSR 0 (11) 10(A) , No pain 8:37:19 74 18 95 21.8 160/81(127) NSR 0 (11) 9(A) , No pain 8:43:22 90 23 92 10.5 226/115(165) NSR 0 (11) 9(A) , No pain 8:47:52 86 39 91 2.2 172/91(133) NSR 0 (11) 9(A) , No pain 8:52:14 76 21 96 20.3 144/72(108) NSR 0 (11) 9(A) , No pain 8:59:45 69 22 94 10.5 124/67(96) NSR 0 (11) 10(A) , No pain Medications Time Medication Route Dose Verified Delivered Reason Notes Effective ness by by 8:20:20 Oxygen etCO2 3 Carroll Sarah used for Nasal l/min St Cr Petty RN procedure cannula 8:29:31 Hurricaine P.O. 1 Carroll Sarah used for [place] Sprays [facility] Cr Petty RN procedure MD 8:29:35 Refer to Carroll Sarah Anesthesia St Cr Petty RN Notes for MD Sedation Medications Procedure Log Time Note 8:19:05 Diagnostic Cath Status : Elective 8:19:16 Keara Petty RN sent for patient. Start room use. 8:19:17 Time tracking: Regular hours (M-F 7:00 - 5:00) 8:19:21 Plan of Care:Hemodynamics will remain stable., Cardiac rhythm will remain stable., Comfort level will be maintained., Respiratory function will remain adequate., Patient/ family verbilizes understanding of procedure., Procedure tolerated without complication., Recovers from procedure without complications.. 8:19:31 Patient received from Med II to CCL 3 Alert and oriented. Tansferred to table in Supine position. 8:19:32 Warm blankets applied, and ciro hugger turned on for patient comfort. 8:19:32 Correct patient and procedure confirmed by team. 8:19:33 Signed procedure consent form obtained from patient. 8:20:20 Oxygen 3 l/min etCO2 Nasal cannula was administered by Keara Petty RN; used for procedure; 8:21:31 ECG and BP/O2 sat monitors applied to patient. 8:21:44 Vital chart was started 8:21:46 Baseline sample Acquired. 8:22:47 Full Disclosure recording started 8:22:51 H&P Date Dictated: 10/21/2017 Within 30 days and on chart., H&P Addendum completed by physician on day of procedure. (MUST COMPLETE FOR ALL OUTPATIENTS). 8:22:57 Pre-procedure instructions explained to patient. 8:22:58 Pre-op teaching completed and patient verbalized understanding. 8:22:59 Family in waiting room. 8:23:00 Patient NPO since Midnight. 8:23:04 Is the patient allergic to Iodine/contrast media? No. 8:23:05 Was the patient premedicated? No 8:23:07 Is patient on blood thinner?Yes 8:23:27 ACC The patient was administered the following blood thiners within the last 24 hours: ACCLovenox 8:24:08 Patient diabetic? No. 8:24:11 Previous problem with sedation/anesthesia? No ? 8:25:27 Snore? No 8:25:28 Sleep apnea? No 8:25:32 Deviated septum? No 8:25:33 Opens mouth fully? Yes 8:25:35 Sticks out tongue? Yes 8:25:40 Airway obstruction? No ? 8:25:42 Dentures? No ? 8:25:47 Pre procedure: right dorsailis pedis pulse 2+ Normal; easily identifiable; not easily obliterated 8:25:50 Pre procedure: left dorsailis pedis pulse 2+ Normal; easily identifiable; not easily obliterated 8:25:53 Patient pain scale 0/10 ?. 8:26:20 IV patent on arrival in left forearm with 0.9% NaCl at [facility]. 8:26:22 Lab results completed and on chart. 8:26:42 Alarms reviewed by R. N. 8:26:43 Sharps counted by scrub and verified by R.N. 8:29:31 [place]aine [place] 1 Sprays P.O. was administered by Buffie Petty RN; used for procedure; 8:29:35 Refer to Anesthesia Notes for Sedation Medications was administered by Keara Petty RN; ; 8:30:53 Hedy Clark CRNA present and monitoring patient for TIVA. 8:30:57 Dragan Lynn Music Mixer present for JAIRON. 8:33:31 Physician arrived 8:33:31 --------ALL STOP TIME OUT------ 8:33:31 Final Timeout: patient, procedure, and site verified with staff and physician. All members of the team are in agreement. 8:33:58 Physical assessment completed. ASA score P 2 - A patient with mild systemic disease as per Carroll Hill MD. 8:34:01 Sedation plan: TIVA Medication:Propofol 8:35:11 Procedure started. 8:35:16 JAIRON started. 8:52:05 JAIRON completed. 8:53:32 Procedure ended.(Physican Out) 8:53:47 Fluoroscopy time 00.00 minutes. 8:53:49 Fluoroscopy dose: 0 mGy 8:53:49 Flurop Dose total: 0 8:53:53 Contrast amount:Isovue 300 0ml. 8:53:55 Sharps counted by scrub and verified by R.N. 8:54:14 Insertion/operative site no bleeding no hematoma. 8:54:16 Post Procedure Pulses reassessed and unchanged 8:54:19 Post procedure rhythm: unchanged. 8:54:26 Estimated blood loss: 0 ml 8:54:34 Post procedure instruction explained to patient.Patient verbalizes understanding. 8:54:35 Patient needs reinforcement of post procedure teaching. 8:54:43 Procedure and supply charges have been captured, reviewed, submitted and are correct. 8:54:47 Procedure Complication : No complications 8:54:50 Vital chart was stopped 8:54:51 See physician's report for complete and final results. 8:54:54 Report given to Med II. 8:54:57 Patient transfered to Med II with Stretcher. 8:54:59 Procedure ended. 8:54:59 Full Disclosure recording stopped 8:55:03 End room use (Document Last) 8:58:52 Sandy García RT(R) was relieved by Paulino Poe RT(R) as monitoring person Signature Audit [place] Stage Time Signature Unsigned Intra-Procedure 10/21/2017 Paulino Poe 9:02:05 AM RT(R) Signatures Monitor : Sandy García RT Signature : Date : Time : Monitor : Paulino Poe RT Signature : Date : Time : [place] [address] [place] [address]
--- NOTE | ~2017-10-19 | CN ---
PATIENT NAME:SHILO ARREOLA MEDICAL RECORD: [id number] : 51 LOCATION:AMADO.2307 ADMIT DATE: 10/19/17 ACCOUNT: [id number] CONSULTING PHYSICIAN: NOHEMI BRINK MD REFERRING PHYSICIAN: ELENA HOFFMAN MD DATE OF CONSULTATION: 10/19/2017 HISTORY OF PRESENT ILLNESS: A 62-year-old female with a history of chronic renal insufficiency, predialysis, stage IV. She has a history of hypertension. Admitted with volume overload, elevated BNP. Has responded nicely to current therapy. Recent graft placed not quite matured for dialysis at this point. We are asked to see her concerning her cardiovascular status. PAST MEDICAL HISTORY: Includes; 1. History of hypertension. 2. Chronic renal insufficiency. ALLERGIES: None known. MEDICATIONS: Include Julisa 60 every day, Benadryl 25 as needed, amlodipine 10 every day, losartan 100 every day, clonidine 0.2 b.i.d., metoprolol 50 b.i.d., Veltassa 8.5 gram daily, Lasix 80 mg p.o. every day. SOCIAL HISTORY: Nonsmoker, nondrinker. Excellent family support. Easily takes care of all of her ADLs. REVIEW OF SYSTEMS: The patient reports easy bruising but reports no swollen glands. The patient reports no fever, no night sweats, no significant weight gain, no significant weight loss. No significant exercise tolerance. The patient reports no dry eyes, no irritation, no vision change. Patient reports no difficulty hearing and no ear pain. Patient reports no frequent nose bleeds or nose and sinus problems. Patient reports on arm pain on exertion. No shortness of breath while lying down. No history of heart murmur. Patient reports no cough, no wheezing or coughing up blood. Patient reports no abdominal pain, no vomiting. Normal appetite. No diarrhea and not vomiting blood. No nausea and no constipation. Patient reports no incontinence. No difficulty urinating. No hematuria. No increased frequency. Patient reports no muscle aches. No weakness, no arthralgias, no back pain. No swelling of the extremities. Patient reports no abnormal mole, no jaundice, no rashes. Reports no loss of consciousness. No weakness and no numbness. No seizures, dizziness, or headaches. The patient reports no depression, no sleep disturbance, feeling safe in a relationship and no alcohol abuse. Patient reports on fatigue. Reports no runny nose or sinus pressure. No itching, no hives, and no frequent sneezing. PHYSICAL EXAMINATION: GENERAL: Pleasant female, in no acute distress, appears comfortable at this point. VITAL SIGNS: Blood pressure 128/64, pulse 70 and regular. HEENT: Normocephalic, atraumatic. NECK: No bruits noted. HEART: Regular. A II/ systolic ejection murmur heard throughout the precordium. LUNGS: Fair air excursion. ABDOMEN: Soft, nontender. CONSULT REPORT [id number] SHILO ARREOLA EXTREMITIES: Pulses 1+. A 1+ edema. IMPRESSION: Volume overload, multifactorial, improving from this standpoint at this point in time. Previous echo showed questionable chordae rupture transthoracically. Given extent of the MR, although might be hypertensive, volume overload related with dilatation of the mitral annulus, I will plan for transesophageal echocardiograph study. Further recommendations based on above. TRANSINT:[id number] Voice Confirmation ID: [id number] DOCUMENT ID: [id number] NOHEMI BRINK MD at 1116 CC: [id number] DICTATION DATE: 10/19/17 1502 PAYROLL OFFICER: 10/19/17 1524 ADM IN [facility] [address] [place] [address]
--- NOTE | ~2017-10-19 | PN ---
PATIENT:SHILO ARREOLA MEDICAL RECORD: [id number] LOCATION:D.M2 D.210 ADMISSION DATE: 10/19/17 PROGRESS NOTE DATE OF SERVICE: 10/26/2017 SUBJECTIVE: This is a 62-year-old female, who has had history of end-stage renal disease, has had a shunt placed and is working pretty much well. The patient presented to the Emergency Room with increasing shortness of breath. She was noted to have right pleural effusion and pulmonary vascular congestion, interstitial and airspace disease. The patient has had thoracentesis and is also on antibiotics. She is on bronchodilators. There is no chest pain. The patient's echocardiogram in the past has shown no cardiac dysfunction. Has been doing well with no chest pain, orthopnea, or PND. PHYSICAL EXAMINATION: GENERAL: Reveals elderly female, who is in no acute distress. VITAL SIGNS: Afebrile. Heart rate of 67, respiratory rate of 20, blood pressure 134/68, saturation at bedside is 93%. SHEENT: Unremarkable. NECK: Supple. CHEST: Shows some mild rales. CARDIAC: Shows no jugular venous distention, murmur, or gallops. ABDOMEN: Benign without any tenderness. EXTREMITIES: Shows no clubbing, cyanosis, or edema. LABORATORY DATA: Lab exam showed a white count of 5, hemoglobin 9.8, platelet count is 141,000. Chemistry is remarkable for BUN of 49, creatinine is 5, magnesium is 1.7. Chest x-ray showed interstitial lung disease and pulmonary vascular congestion. There is also some airspace disease in the lung bases. DISCUSSION: NEUROPSYCHIATRY: The patient has no focal signs. Mental status is probably at baseline. CARDIOVASCULAR: There are no issues. There are no arrhythmias. PULMONARY/RESPIRATORY: The patient has pneumonia, pulmonary congestion probably secondary to volume overload. She has also had pleural effusion, with thoracentesis. GASTROINTESTINAL/DIETARY: There is no abdominal pain. The patient is tolerating diet. PLAN: 1. Continue bronchodilators and antibiotics. 2. Nephrology is following. 3. DVT prophylaxis. TRANSINT:[id number] Voice Confirmation ID: [id number] DOCUMENT ID: [id number] PROGRESS NOTE [id number] SHILO ARREOLA DARRYL FOSTER at 0827 CC: [id number] DICTATION DATE: 10/26/172130 VISUAL MERCHANDISING COORDINATOR: 10/27/17 0843 ADM IN [facility] [address] [place] [address]
--- NOTE | ~2017-10-19 | HEMODYNAMI ---
PATIENT:HSILO ARREOLA MEDICAL RECORD: [id number] : 51 LOCATION:[facility] D.2307 ADMISSION DATE: 10/19/17 Generatedon:10/24/201711:07 Patient name: SHILO ARREOLA Patient #: [id number] SSN: : 1955 Date of study: 10/24/2017 Page: Of Hemodynamic Procedure Report Patient Data Patient Demographics Procedure consent was obtained First Name: SHILO Gender: Female Last Name: MAXWELL : 1955 Middle Initial: MACKENZIE Age: 62 year(s) Patient #: [id number] Race: Black Additional ID: [id number] Contact details Address: [address] [place] [address] State: [place] City: [place] Zip code: [address] Admission Admission Data Admission Date: 10/19/2017 Admission Time: 3:57 Room #: D.2307 Procedure Procedure Types Cath Procedure Diagnostic Procedure C [facility] w/Coronaries Procedure Description Procedure Date Procedure Date: 10/24/2017 Procedure Start Time: 10:56 Procedure End Time: 11:04 Procedure Staff Name Function Carroll Hill MD Performing Physician Sandy García RT Scrub Mitul Church RN Nurse Stone Choi MD Additional personnel Sandy García RT Monitor Procedure Data Cath Procedure Fluoroscopy Diagnostic fluoroscopy Total fluoroscopy Time: 0.9 time: 0.9 min min Diagnostic fluoroscopy Total fluoroscopy dose: dose: 163.72 mGy 163.72 mGy Contrast Material Contrast Material Type Amount (ml) Isovue 300 60 Entry Location Entry Primary Successful Side Size Upsize Upsize Entry Closure Succes sful Closure Location (Fr) 1 (Fr) 2 (Fr) Remarks Device Remarks Femoral Right 5 Fr Exoseal artery Estimated blood loss: 5 ml Diagnostic catheters Device Type Used For End Catheter Placement MULTIPACK JL 4.0 5Fr Left Coronary catheter Angiography MULTIPACK 3DRC 5Fr Right Coronary catheter Angiography MULTIPACK Pigtail 5 Fr LV Angiography catheter Procedure Complications No complications Procedure Medications Medication Administration Route Dosage Oxygen NC 6 l/min Heparin Flush Bag added to field 2 bags (1000units/500ml NS) Refer to Anesthesia Notes for Sedation Medications Hemodynamics Rest Heart Rate: 65 (bpm) Pressure Samples Time Site Value (mmHg) Purpose Heart Use Rate(bpm) 11:01 LV 123/-3,18 Snapshot 62 Gradients Valve Time Site Site Mean SEP/DFP Peak To Heart Use 1 2 (mmHg) (sec/min) Peak Rate (mmHg) (bpm) Aortic 11:02 LV AO 61 Snapshots Pre Cath Intra NCS Post Cath Vital Signs Time Heart Resp SPO2 etCO2 NIBP (mmHg) Rhythm Pain Sedation Rate (ipm) (%) (mmHg) Status Level (bpm) 10:39:37 66 17 100 0 139/72(107) NSR 0 (11) 10(A) , No pain 10:43:54 64 16 100 0 137/71(105) NSR 0 (11) 10(A) , No pain 10:48:09 67 16 98 0 136/69(109) NSR 0 (11) 10(A) , No pain 10:52:23 62 17 100 0 125/63(99) NSR 0 (11) 10(A) , No pain 10:56:39 61 16 99 0 116/58(83) NSR 0 (11) 9(A) , No pain 11:00:51 61 16 99 0 113/61(87) NSR 0 (11) 9(A) , No pain 11:05:03 62 16 98 0 118/58(92) NSR 0 (11) 9(A) , No pain Medications Time Medication Route Dose Verified Delivered Reason Notes Effec tiveness by by 10:46:34 Oxygen NC 6 Carroll Bauman Per l/min [facility] Church RN physician MD 10:46:47 Heparin Flush added 2 Carroll Bauman used for Bag to bags [facility] Church RN procedure (1000units/500ml field NS) 10:46:56 Refer to Carroll Bamuan Per Anesthesia Notes [facility] Church RN physician for Sedation MD Medications Procedure Log Time Note 10:19:43 Diagnostic Cath Status : Elective 10:20:11 Sandy García RT(R) sent for patient. Start room use. 10:20:11 Time tracking: Regular hours (M-F 7:00 - 5:00) 10:20:15 Plan of Care:Hemodynamics will remain stable., Cardiac rhythm will remain stable., Comfort level will be maintained., Respiratory function will remain adequate., Patient/ family verbilizes understanding of procedure., Procedure tolerated without complication., Recovers from procedure without complications.. 10:38:27 Patient received from ICU to [facility] 2 Alert and oriented. Tansferred to table in Supine position. 10:38:29 Warm blankets applied, and ciro hugger turned on for patient comfort. 10:38:29 Correct patient and procedure confirmed by team. 10:38:31 Signed procedure consent form obtained from patient. 10:38:32 ECG and BP/O2 sat monitors applied to patient. 10:38:33 Vital chart was started 10:38:36 Baseline sample Acquired. 10:38:38 Rhythm: sinus rhythm 10:38:40 Full Disclosure recording started 10:38:45 H&P Date Dictated: 10/24/2017 Within 30 days and on chart., H&P Addendum completed by physician on day of procedure. (MUST COMPLETE FOR ALL OUTPATIENTS). 10:38:47 Pre-procedure instructions explained to patient. 10:38:47 Pre-op teaching completed and patient verbalized understanding. 10:38:48 Family in waiting room. 10:38:50 Patient NPO since Midnight. 10:38:53 Is the patient allergic to Iodine/contrast media? No. 10:38:55 Was the patient premedicated? No 10:40:34 Is patient on blood thinner?No 10:40:55 Patient diabetic? No. 10:40:59 Previous problem with sedation/anesthesia? No ? 10:41:09 Snore? No 10:41:10 Sleep apnea? No 10:41:11 Deviated septum? No 10:41:11 Opens mouth fully? Yes 10:41:12 Sticks out tongue? Yes 10:41:14 Airway obstruction? No ? 10:41:19 Dentures? No ? 10:41:23 Pre procedure: right dorsailis pedis pulse 2+ Normal; easily identifiable; not easily obliterated 10:41:26 Pre procedure: left dorsailis pedis pulse 2+ Normal; easily identifiable; not easily obliterated 10:41:29 Patient pain scale 0/10 ?. 10:41:46 IV patent on arrival in left forearm with 0.9% NaCl at [facility]. 10:41:49 Lab results completed and on chart. 10:41:54 Right groin area was prepped with chlora-prep and draped in sterile fashion 10:41:56 Alarms reviewed by R. N. 10:41:56 Sharps counted by scrub and verified by R.N. 10:45:05 Stone Choi MD present and monitoring patient for TIVA. 10:45:11 Physician arrived 10:45:12 --------ALL STOP TIME OUT------ 10:45:12 Final Timeout: patient, procedure, and site verified with staff and physician. All members of the team are in agreement. 10:45:15 Right groin site verified by team. 10:45:20 Physical assessment completed. ASA score P 4 - A patient with severe systemic disease that is a constant threat to life as per Carroll Hill MD. 10:45:24 Sedation plan: TIVA Medication:Propofol 10:45:29 Use device set Femoral Dx 10:45:30 ACIST Syringe (43577) opened to sterile field. 10:45:32 Bag Decanter (2002S) opened to sterile field. 10:45:33 Medline Cath Pack ([id number]) opened to sterile field. 10:45:34 DIAGNOSTIC WIRE .035 260cm J wire (413764) opened to sterile field. 10:45:35 ACIST Hand Control (57507) opened to sterile field. 10:45:35 ACIST Manifold (60217) opened to sterile field. 10:45:36 DIAGNOSTIC Multipack 5Fr catheter set ([id number]) opened to sterile field. 10:45:37 SHEATH Prelude 5Fr 0.035 (RUH-6J-01-035) opened to sterile field. 10:46:34 Oxygen 6 l/min NC was administered by Mitul Church RN; Per physician; 10:46:47 Heparin Flush Bag (1000units/500ml NS) 2 bags added to field was administered by Mitul Church RN; used for procedure; 10:46:56 Refer to Anesthesia Notes for Sedation Medications was administered by Mitul Church RN; Per physician; 10:50:53 Zero performed for pressure channel P1 10:56:17 Procedure started. 10:56:22 Local anesthetic to right femoral artery with Lidocaine 2% by Carroll Hill MD.INITIAL ACCESS ONLY 10:57:39 A 5 Fr sheath was inserted into the Right Femoral artery 10:57:51 A MULTIPACK JL 4.0 5Fr catheter was advanced over the wire and used for Left Coronary Angiography. 10:58:42 LCA angiography performed. 10:58:44 Injector settings: Ml/sec: 3, Volume: 6, 10:59:21 Catheter removed. 10:59:27 A MULTIPACK 3DRC 5Fr catheter was advanced over the wire and used for Right Coronary Angiography. 11:00:27 RCA angiography performed. 11:00:30 Injector settings: Ml/sec: 3, Volume: 6, 11:00:39 Catheter removed. 11:00:49 A MULTIPACK Pigtail 5 Fr catheter was advanced over the wire and used for LV Angiography. 11:01:44 LV hemodynamics recorded. 11:01:45 LV gram done using OCAMPO 11:01:47 Injector settings: Ml/sec: 5, Volume: 15, 11:02:18 EF : 60 % 11:02:33 Catheter removed. 11:02:36 EXOSEAL 5Fr (EX500) opened to sterile field. 11:02:38 Tegaderm 4 x 4 (1626W) opened to sterile field. 11:02:48 Sheath removed intact; hemostasis achieved with Exoseal to the Right Femoral artery. 11:02:49 Procedure ended.(Physican Out) 11:02:58 Fluoroscopy time 00.90 minutes. 11:03:04 Fluoroscopy dose: 163.72 mGy 11:03:04 Flurop Dose total: 163.72 11:03:09 Contrast amount:Isovue 300 60ml. 11:03:10 Sharps counted by scrub and verified by R.N. 11:03:14 Insertion/operative site no bleeding no hematoma. 11:03:17 Post-op/insertion site Right Femoral artery dressed using a 4 x 4 and Tegaderm. 11:03:20 Post right femoral artery:stable 11:03:48 Post Procedure Pulses reassessed and unchanged 11:03:51 Post procedure rhythm: unchanged. 11:03:54 Estimated blood loss: 5 ml 11:04:02 Post procedure instruction explained to patient.Patient verbalizes understanding. 11:04:02 Patient needs reinforcement of post procedure teaching. 11:04:11 Procedure and supply charges have been captured, reviewed, submitted and are correct. 11:04:17 Procedure Complication : No complications 11:04:19 Vital chart was stopped 11:04:20 See physician's report for complete and final results. 11:04:23 Report given to ICU. 11:04:26 Patient transfered to ICU with Stretcher. 11:04:28 Procedure ended. 11:04:28 Full Disclosure recording stopped 11:04:32 End room use (Document Last) Device Usage Item Name Manufacture Quantity Catalog Number Hospital Part Current M inimal Lot# / Charge Number Stock Stock Serial# Code ACIST Syringe Acist 1 [id number] [id number] [id number] 2 0 (93741) [employer] Bag Decanter Microtek 1 2001S 569136 97281 146368 5 () Medical Inc. Medline Cath Cardinal 1 [id number] 614207 83350 922960 5 Pack Health ([id number]) DIAGNOSTIC WIRE St Alber 1 095004 967333 683371 875884 3 0 .035 260cm J wire (423222) ACIST Hand Acist 1 23811 510179 907871 052762 5 Control (14146) [employer] Inc ACIST Manifold Acist 1 87093 036250 784786 074624 5 (36088) [employer] Inc DIAGNOSTIC Cardinal 1 BB0004 324834 46064 640857 3 0 Multipack 5Fr Health catheter set ([id number]) SHEATH Prelude Merit 1 [id number]-5B-22-035 927532 415397 799715 5 5Fr 0.035 Medical ([id number]-1N-11-035) MULTIPACK JL Cardinal 1 855156 5 4.0 5Fr Health catheter MULTIPACK 3DRC Cardinal 1 023995 5 5Fr catheter Health MULTIPACK Cardinal 1 150025 5 Pigtail 5 Fr Health catheter EXOSEAL 5Fr Cardinal 1 EX500 229658 899400 761770 1 0 (EX500) Health Tegaderm 4 x 4 3M 1 1626W 970647 307777 063742 5 (1626W) Signature Audit [place] Stage Time Signature Unsigned Intra-Procedure 10/24/2017 Sandy García 11:07:03 AM RT(R) Signatures Monitor : Sandy García RT Signature : Date : Time : [id number] [place] [address]
--- NOTE | ~2017-10-19 | PN ---
PATIENT:SHILO ARREOLA MEDICAL RECORD: [id number] LOCATION:[facility] D.CV0 ADMISSION DATE: 10/19/17 PROGRESS NOTE DATE OF SERVICE: 11/09/2017 SUBJECTIVE: This is a 62-year-old female who has had a history of end-stage renal disease. The patient was admitted for fistula for hemodialysis. The patient was noted to have mitral valve disease. The patient had a mitral valve replacement and coronary artery bypass surgery. She also had bilateral lower lobe atelectasis and left pleural effusion. She has some coughing and shortness of breath. The patient is breathing well. She has been working with physical therapy. There is no fever or chills. She has had dialysis. There is no fever or chills. PHYSICAL EXAMINATION: GENERAL: This is an awake and alert female who is in no acute distress. VITAL SIGNS: Temperature 98.2, heart rate of 91, respiratory rate of 21, blood pressure 126/51, saturation 95%. HEENT: Unremarkable. The patient is normocephalic. Nares are normal with no obstruction or redness. NECK: Supple. There is no adenopathy. Trachea is midline. There is no thyromegaly. LUNGS: Clear with good airflow bilaterally. There are no wheezes. HEART: Shows jugular venous distention, murmur or gallops. ABDOMEN: Benign, without any tenderness. EXTREMITIES: Shows no clubbing, cyanosis or edema. LABORATORY DATA: White count of 6.2, hemoglobin 9.2, platelet count is 248. Chemistries remarkable for creatinine of 5.7, BUN of 49, carbon dioxide of 28. Chest x-ray showed some mild right pleural effusion on the right. Next, there is a mass that appears to be a loculated fluid on the lateral aspect of the mid lung. ASSESSMENT: 1. End-stage renal disease on hemodialysis. 2. Acute asthmatic bronchitis, improved. 3. Bilateral pleural effusion, small in the right, loculated on the left. 4. Status post mitral valve replacement. 5. Status post coronary artery bypass graft surgery. PLAN: 1. Continue treatment as current. 2. Deep venous thrombosis prophylaxis. 3. We will sign off this patient. If needed, please call. TRANSINT:[id number] Voice Confirmation ID: [id number] DOCUMENT ID: [id number] PROGRESS NOTE [id number] MAXWELL,SHILODARRYL MAIN at 1241 CC: [id number] DICTATION DATE: 11/09/171944 RUBY ON RAILS DEVELOPER: 11/10/17 0040 ADM IN [facility] [address] [id number]
[~2017-10-19 02:15] MED LIST changes: +LASIX40 MG PO
[2017-10-19 02:58] LABS: BASOPHILS 0.6 % (0-2); EOSINOPHILS 3.2 % (0-7); HEMOGLOBIN 9.7 g/dL (12-16); IMMATURE GRANULOCYTES 0.2 % (0-5); LYMPHOCYTES 38.7 % (15-50); MCH 28.5 pg (26.0-34.0); MCHC 33.4 g/dL (31.0-37.0); MCV 85.3 fL (80.0-100.0); MEAN PLATELET VOLUME 8.9 fL (7.4-10.4); MONOCYTES 8.9 % (2-11); NEUTROPHILS 48.4 % (40-80); PLATELET COUNT 184 10x3/uL (130-400); RDW 14.7 % (11.5-14.5)
[2017-10-19 03:15] LABS: ALBUMIN 2.6 g/dL (3.4-5.0); ANION GAP 11.6 mmol/L (8-16); BILIRUBIN - TOTAL 0.81 mg/dL (0.2-1.3); CALCIUM 8.7 mg/dL (8.5-10.1); CARBON DIOXIDE 26.7 mmol/L (21.0-32.0); CREATININE - SERUM 5.4 mg/dL (0.6-1.3); POTASSIUM - SERUM 3.3 mmol/L (3.5-5.1); PROTEIN - SERUM 6.9 g/dL (6.4-8.2)
[2017-10-19 07:49] VITALS: BP 158/67
[2017-10-19 10:35] VITALS: BP 114/56
[2017-10-19 14:23] VITALS: BP 128/64
[2017-10-19 15:07] VITALS: BP 126/57; BMI 27.8
[2017-10-19 16:12] VITALS: BP 150/63
[2017-10-19 20:06] VITALS: BP 130/54
[2017-10-20] VITALS: BP 127/61
[2017-10-20 04:00] VITALS: BP 146/73
[2017-10-20 06:16] LABS: BASOPHILS 0.8 % (0-2); EOSINOPHILS 8.5 % (0-7); HEMATOCRIT 25.5 % (36.0-48.0); HEMOGLOBIN 8.2 g/dL (12-16); IMMATURE GRANULOCYTES 0.2 % (0-5); LYMPHOCYTES 33.8 % (15-50); MCH 28.1 pg (26.0-34.0); MCHC 32.2 g/dL (31.0-37.0); MEAN PLATELET VOLUME 10.8 fL (7.4-10.4); MONOCYTES 8.2 % (2-11); NEUTROPHILS 48.5 % (40-80); PLATELET COUNT 197 10x3/uL (130-400); RBC 2.92 10x6/uL (4.00-5.40)
[2017-10-20 06:30] LABS: MCV 87.3 fL (80.0-100.0)
[2017-10-20 06:54] LABS: ALBUMIN 2.3 g/dL (3.4-5.0); BILIRUBIN - TOTAL 0.47 mg/dL (0.2-1.3); CALCIUM 8.1 mg/dL (8.5-10.1); CARBON DIOXIDE 26.4 mmol/L (21.0-32.0); CREATININE - SERUM 5.8 mg/dL (0.6-1.3); PROTEIN - SERUM 5.5 g/dL (6.4-8.2)
[2017-10-20 07:10] LABS: ANION GAP 11.5 mmol/L (8-16); POTASSIUM - SERUM 3.9 mmol/L (3.5-5.1)
[2017-10-20 07:43] VITALS: BP 135/57
[2017-10-20 11:40] VITALS: BP 130/62
[2017-10-20 12:21] VITALS: BMI 27.7
[2017-10-20 15:53] VITALS: BP 136/68
[2017-10-20 20:33] VITALS: BP 125/55
[2017-10-21] VITALS (15 sets, daily range): BP systolic 94–164; BP diastolic 48–92; Ht 171.4 cm; Wt 79.6 kg
[2017-10-21 05:59] LABS: BASOPHILS 0.8 % (0-2); HEMATOCRIT 24.8 % (36.0-48.0); IMMATURE GRANULOCYTES 0.4 % (0-5); LYMPHOCYTES 37.1 % (15-50); MCH 28.5 pg (26.0-34.0); MCHC 32.3 g/dL (31.0-37.0); MCV 88.3 fL (80.0-100.0); MONOCYTES 8.1 % (2-11); NEUTROPHILS 43.6 % (40-80); PLATELET COUNT 197 10x3/uL (130-400); RBC 2.81 10x6/uL (4.00-5.40); RDW 15.2 % (11.5-14.5); WBC 5.3 10x3/uL (4.8-10.8)
[2017-10-21 06:30] LABS: ANION GAP 13.1 mmol/L (8-16); CALCIUM 8.2 mg/dL (8.5-10.1); CARBON DIOXIDE 27.2 mmol/L (21.0-32.0); CREATININE - SERUM 6.1 mg/dL (0.6-1.3); POTASSIUM - SERUM 4.3 mmol/L (3.5-5.1)
[2017-10-21 13:34] LABS: CKMB 2.5 U/L (0.0-3.6); CREATINE KINASE 212 UL (21-215); TROPONIN-I 0.057 ng/mL (0.000-0.060)
[2017-10-21 17:46] LABS: CKMB 3.9 U/L (0.0-3.6); CREATINE KINASE 156 UL (21-215)
[2017-10-21 17:48] LABS: TROPONIN-I 0.768 ng/mL (0.000-0.060)
[2017-10-22] VITALS (21 sets, daily range): BP systolic 104–191; BP diastolic 55–141
[2017-10-22 00:51] LABS: CKMB 3.7 U/L (0.0-3.6); CREATINE KINASE 133 UL (21-215)
[2017-10-22 00:55] LABS: TROPONIN-I 1.024 ng/mL (0.000-0.060)
[2017-10-22 04:45] LABS: BASOPHILS 0.8 % (0-2); EOSINOPHILS 1.2 % (0-7); HEMATOCRIT 24.2 % (36.0-48.0); HEMOGLOBIN 7.7 g/dL (12-16); IMMATURE GRANULOCYTES 0.2 % (0-5); LYMPHOCYTES 36.8 % (15-50); MCHC 31.8 g/dL (31.0-37.0); MEAN PLATELET VOLUME 10.1 fL (7.4-10.4); MONOCYTES 9.3 % (2-11); NEUTROPHILS 51.7 % (40-80); PLATELET COUNT 164 10x3/uL (130-400); RBC 2.75 10x6/uL (4.00-5.40); RDW 15.1 % (11.5-14.5)
[2017-10-22 05:14] LABS: APPEARANCE CLEAR (CLEAR); BACTERIA NONE SEEN /hpf (NONE SEEN); BILIRUBIN NEGATIVE (NEGATIVE); COLOR YELLOW (YELLOW); EPITHELIAL CELLS NSEEN /hpf (0-5); GLUCOSE NEGATIVE (NEGATIVE); KETONE NEGATIVE (NEGATIVE); NITRITE NEGATIVE (NEGATIVE); PROTEIN TRACE mg/dL (NEGATIVE); RED CELLS - URINE 0-5 /hpf (0-5); SPECIFIC GRAVITY 1.015 (1.005-1.020); UROBILINOGEN NORMAL (NORMAL); WHITE CELLS - URINE RARE /hpf (0-5)
[2017-10-22 05:21] LABS: ANION GAP 16.9 mmol/L (8-16); CALCIUM 8.5 mg/dL (8.5-10.1); CARBON DIOXIDE 22.6 mmol/L (21.0-32.0); CREATININE - SERUM 6.1 mg/dL (0.6-1.3); POTASSIUM - SERUM 4.5 mmol/L (3.5-5.1)
[2017-10-23] VITALS (22 sets, daily range): BP systolic 109–179; BP diastolic 54–98
[2017-10-23 03:17] LABS: BASOPHILS 0.4 % (0-2); EOSINOPHILS 6.9 % (0-7); IMMATURE GRANULOCYTES 0.4 % (0-5); MCH 28.6 pg (26.0-34.0); MCHC 32.9 g/dL (31.0-37.0); MCV 86.9 fL (80.0-100.0); MEAN PLATELET VOLUME 9.4 fL (7.4-10.4); MONOCYTES 7.7 % (2-11); NEUTROPHILS 61.6 % (40-80); RDW 14.9 % (11.5-14.5)
[2017-10-23 03:21] LABS: HEMATOCRIT 29.8 % (36.0-48.0); HEMOGLOBIN 9.8 g/dL (12-16); PLATELET COUNT 129 10x3/uL (130-400); RBC 3.43 10x6/uL (4.00-5.40); WBC 7.6 10x3/uL (4.8-10.8)
[2017-10-23 03:33] LABS: CALCIUM 8.1 mg/dL (8.5-10.1)
[2017-10-23 03:34] LABS: ANION GAP 9.6 mmol/L (8-16); CARBON DIOXIDE 29.1 mmol/L (21.0-32.0); POTASSIUM - SERUM 3.7 mmol/L (3.5-5.1)
[2017-10-23 10:57] LABS: BASOPHILS 0.4 % (0-2); HEMATOCRIT 29.4 % (36.0-48.0); HEMOGLOBIN 9.7 g/dL (12-16); IMMATURE GRANULOCYTES 0.3 % (0-5); LYMPHOCYTES 19.6 % (15-50); MCH 28.9 pg (26.0-34.0); MCV 87.5 fL (80.0-100.0); MEAN PLATELET VOLUME 9.8 fL (7.4-10.4); MONOCYTES 5.6 % (2-11); NEUTROPHILS 68.1 % (40-80); PLATELET COUNT 139 10x3/uL (130-400); RBC 3.36 10x6/uL (4.00-5.40); RDW 14.9 % (11.5-14.5); WBC 6.8 10x3/uL (4.8-10.8)
[2017-10-23 11:09] LABS: ANION GAP 9.3 mmol/L (8-16); CALCIUM 8.4 mg/dL (8.5-10.1); CARBON DIOXIDE 29.3 mmol/L (21.0-32.0); CREATININE - SERUM 5.1 mg/dL (0.6-1.3); POTASSIUM - SERUM 3.6 mmol/L (3.5-5.1)
[2017-10-24] VITALS (28 sets, daily range): BP systolic 116–178; BP diastolic 53–100
[2017-10-24 04:32] LABS: BASOPHILS 0.5 % (0-2); HEMOGLOBIN 10.2 g/dL (12-16); IMMATURE GRANULOCYTES 0.3 % (0-5); LYMPHOCYTES 27.4 % (15-50); MCH 28.8 pg (26.0-34.0); MCHC 32.9 g/dL (31.0-37.0); MCV 87.6 fL (80.0-100.0); MEAN PLATELET VOLUME 9.8 fL (7.4-10.4); MONOCYTES 7.8 % (2-11); PLATELET COUNT 145 10x3/uL (130-400); RBC 3.54 10x6/uL (4.00-5.40); RDW 14.6 % (11.5-14.5); WBC 5.9 10x3/uL (4.8-10.8)
[2017-10-24 04:59] LABS: CALCIUM 8.3 mg/dL (8.5-10.1); CARBON DIOXIDE 29.9 mmol/L (21.0-32.0); CREATININE - SERUM 5.3 mg/dL (0.6-1.3); POTASSIUM - SERUM 3.9 mmol/L (3.5-5.1); PROTEIN - SERUM 5.9 g/dL (6.4-8.2)
[2017-10-24 05:18] LABS: APTT 26.3 SECONDS (22.8-39.4); INR 1.05 (0.85-1.17); PROTIME 13.3 SECONDS (11.6-15.0)
[2017-10-25] VITALS (31 sets, daily range): BP systolic 107–155; BP diastolic 56–80
[2017-10-25 04:50] LABS: BASOPHILS 0.3 % (0-2); EOSINOPHILS 7.1 % (0-7); HEMATOCRIT 30.2 % (36.0-48.0); HEMOGLOBIN 9.9 g/dL (12-16); IMMATURE GRANULOCYTES 0.3 % (0-5); LYMPHOCYTES 25.2 % (15-50); MCH 28.9 pg (26.0-34.0); MCHC 32.8 g/dL (31.0-37.0); MCV 88.3 fL (80.0-100.0); MEAN PLATELET VOLUME 10.6 fL (7.4-10.4); MONOCYTES 6.7 % (2-11); NEUTROPHILS 60.4 % (40-80); PLATELET COUNT 150 10x3/uL (130-400); RBC 3.42 10x6/uL (4.00-5.40); RDW 14.6 % (11.5-14.5); WBC 6.1 10x3/uL (4.8-10.8)
[2017-10-25 05:44] LABS: ANION GAP 8.1 mmol/L (8-16); CALCIUM 7.8 mg/dL (8.5-10.1); CARBON DIOXIDE 32.6 mmol/L (21.0-32.0); CREATININE - SERUM 4.2 mg/dL (0.6-1.3); POTASSIUM - SERUM 3.7 mmol/L (3.5-5.1)
[2017-10-25 15:36] LABS: PROTEIN - BODY FLUID 1.7 G/DL
[2017-10-25 16:30] LABS: EOS BF 1 %; MACROPHAGES BF 37 %; MESOTHELIALS BF 3 %; NEUT - BF 8 %
[2017-10-26] VITALS (23 sets, daily range): BP systolic 120–149; BP diastolic 55–85
[2017-10-26 05:23] LABS: BASOPHILS 0.4 % (0-2); EOSINOPHILS 11.3 % (0-7); HEMATOCRIT 29.6 % (36.0-48.0); HEMOGLOBIN 9.8 g/dL (12-16); IMMATURE GRANULOCYTES 0.4 % (0-5); MCHC 33.1 g/dL (31.0-37.0); MCV 87.6 fL (80.0-100.0); MEAN PLATELET VOLUME 10.6 fL (7.4-10.4); MONOCYTES 8.1 % (2-11); NEUTROPHILS 49.8 % (40-80); PLATELET COUNT 141 10x3/uL (130-400); RBC 3.38 10x6/uL (4.00-5.40)
[2017-10-26 05:41] LABS: ALBUMIN 1.9 g/dL (3.4-5.0); ANION GAP 9.5 mmol/L (8-16); BILIRUBIN - TOTAL 0.49 mg/dL (0.2-1.3); CARBON DIOXIDE 30.3 mmol/L (21.0-32.0); MAGNESIUM - SERUM 1.7 mg/dL (1.8-2.4); POTASSIUM - SERUM 3.8 mmol/L (3.5-5.1); PROTEIN - SERUM 5.6 g/dL (6.4-8.2)
[2017-10-26 13:17] LABS: FUNGUS STAIN Final report (())
[2017-10-26 16:13] LABS: HEPATITIS C ANTIBODY 0.1 (0.0-0.9)
[2017-10-26 19:12] LABS: ACID FAST SMEAR Negative (()); AFB SPECIMEN PROCESSING Not Indicated (())
[2017-10-27 05:36] LABS: BASOPHILS 0.3 % (0-2); EOSINOPHILS 9.2 % (0-7); HEMATOCRIT 31.3 % (36.0-48.0); HEMOGLOBIN 10.3 g/dL (12-16); IMMATURE GRANULOCYTES 0.5 % (0-5); LYMPHOCYTES 25.3 % (15-50); MCH 28.9 pg (26.0-34.0); MCHC 32.9 g/dL (31.0-37.0); MCV 87.9 fL (80.0-100.0); MEAN PLATELET VOLUME 9.8 fL (7.4-10.4); MONOCYTES 7.5 % (2-11); NEUTROPHILS 57.2 % (40-80); RBC 3.56 10x6/uL (4.00-5.40); RDW 13.9 % (11.5-14.5); WBC 5.9 10x3/uL (4.8-10.8)
[2017-10-27 05:48] LABS: PLATELET COUNT 106 10x3/uL (130-400)
[2017-10-27 06:11] VITALS: BP 122/55
[2017-10-27 06:42] LABS: ANION GAP 11.2 mmol/L (8-16); BILIRUBIN - TOTAL 0.39 mg/dL (0.2-1.3); CALCIUM 8.3 mg/dL (8.5-10.1); CARBON DIOXIDE 31.8 mmol/L (21.0-32.0); CREATININE - SERUM 4.1 mg/dL (0.6-1.3); MAGNESIUM - SERUM 1.8 mg/dL (1.8-2.4)
[2017-10-27 07:48] VITALS: BP 106/45
[2017-10-27 11:52] VITALS: BP 102/47
[2017-10-27 15:54] VITALS: BP 105/46
[2017-10-27 21:00] VITALS: BP 114/47
[2017-10-28 02:11] VITALS: BP 119/52
[2017-10-28 06:28] VITALS: BP 120/52
[2017-10-28 07:40] VITALS: BP 123/53
[2017-10-28 11:55] VITALS: BP 102/38
[2017-10-28 13:16] LABS: BASOPHILS 0.4 % (0-2); EOSINOPHILS 10.5 % (0-7); HEMATOCRIT 33.2 % (36.0-48.0); HEMOGLOBIN 10.9 g/dL (12-16); IMMATURE GRANULOCYTES 0.3 % (0-5); MCH 29.3 pg (26.0-34.0); MCHC 32.8 g/dL (31.0-37.0); MCV 89.2 fL (80.0-100.0); MEAN PLATELET VOLUME 9.9 fL (7.4-10.4); MONOCYTES 6.1 % (2-11); NEUTROPHILS 57.7 % (40-80); RBC 3.72 10x6/uL (4.00-5.40); WBC 6.9 10x3/uL (4.8-10.8)
[2017-10-28 13:17] LABS: PLATELET COUNT 145 10x3/uL (130-400)
[2017-10-28 13:30] LABS: APTT 26.2 SECONDS (22.8-39.4)
[2017-10-28 13:34] LABS: INR 0.97 (0.85-1.17); PROTIME 12.5 SECONDS (11.6-15.0)
[2017-10-28 13:47] LABS: ALBUMIN 2.3 g/dL (3.4-5.0); BILIRUBIN - TOTAL 0.32 mg/dL (0.2-1.3); CALCIUM 8.1 mg/dL (8.5-10.1); CARBON DIOXIDE 29.9 mmol/L (21.0-32.0); PHOSPHOROUS 4.9 mg/dL (2.5-4.9); POTASSIUM - SERUM 3.9 mmol/L (3.5-5.1); PROTEIN - SERUM 6.1 g/dL (6.4-8.2); T4 THYROXIN - FREE 1.03 ng/dL (0.76-1.46); THYROID STIMULATING HORMONE 3.55 uIU/mL (0.36-3.74); URIC ACID 7.3 mg/dL (2.6-7.2)
[2017-10-28 13:53] LABS: CREATININE - SERUM 5.3 mg/dL (0.6-1.3)
[2017-10-28 15:08] VITALS: BP 108/46
[2017-10-28 21:12] VITALS: BP 128/41
[2017-10-29] VITALS (7 sets, daily range): BP systolic 95–127; BP diastolic 40–59
[2017-10-29 08:34] LABS: ANION GAP 14.7 mmol/L (8-16); CALCIUM 8.3 mg/dL (8.5-10.1); CARBON DIOXIDE 24.8 mmol/L (21.0-32.0); CREATININE - SERUM 5.6 mg/dL (0.6-1.3); POTASSIUM - SERUM 4.5 mmol/L (3.5-5.1)
[2017-10-29 15:17] LABS: APPEARANCE HAZY (CLEAR); BILIRUBIN NEGATIVE (NEGATIVE); COLOR YELLOW (YELLOW); GLUCOSE NEGATIVE (NEGATIVE); KETONE NEGATIVE (NEGATIVE); NITRITE NEGATIVE (NEGATIVE); PROTEIN 2+ mg/dL (NEGATIVE); SPECIFIC GRAVITY 1.015 (1.005-1.020); UROBILINOGEN NORMAL (NORMAL)
[2017-10-29 15:18] LABS: WHITE CELLS - URINE 0-5 /hpf (0-5)
[2017-10-29 15:19] LABS: BACTERIA FEW /hpf (NONE SEEN); EPITHELIAL CELLS 0-5 /hpf (0-5); RED CELLS - URINE 0-5 /hpf (0-5)
[2017-10-30 04:00] VITALS: BP 121/51
[2017-10-30 08:37] VITALS: BP 122/49
[2017-10-30 12:27] VITALS: BP 126/55
[2017-10-30 20:00] VITALS: BP 155/59
[2017-10-31] VITALS (28 sets, daily range): BP systolic 90–128; BP diastolic 40–53
[2017-10-31 05:06] LABS: BASOPHILS 0.6 % (0-2); EOSINOPHILS 9.4 % (0-7); HEMATOCRIT 28.1 % (36.0-48.0); HEMOGLOBIN 9.1 g/dL (12-16); IMMATURE GRANULOCYTES 0.4 % (0-5); LYMPHOCYTES 28.2 % (15-50); MCH 28.5 pg (26.0-34.0); MCHC 32.4 g/dL (31.0-37.0); MCV 88.1 fL (80.0-100.0); MEAN PLATELET VOLUME 9.5 fL (7.4-10.4); MONOCYTES 12.5 % (2-11); NEUTROPHILS 48.9 % (40-80); PLATELET COUNT 135 10x3/uL (130-400); RBC 3.19 10x6/uL (4.00-5.40); WBC 5.1 10x3/uL (4.8-10.8)
[2017-10-31 05:50] LABS: ALBUMIN 2.1 g/dL (3.4-5.0); BILIRUBIN - TOTAL 0.25 mg/dL (0.2-1.3); CALCIUM 8.4 mg/dL (8.5-10.1); CARBON DIOXIDE 28.4 mmol/L (21.0-32.0); CREATININE - SERUM 5.3 mg/dL (0.6-1.3); PHOSPHOROUS 5.3 mg/dL (2.5-4.9)
[2017-10-31 05:53] LABS: INR 1.02 (0.85-1.17)
[2017-10-31 06:04] LABS: POTASSIUM - SERUM 3.4 mmol/L (3.5-5.1)
[2017-10-31 08:21] LABS: PLT FUNCT.(P2Y12) PLAVIX 320 PRU (194-418)
[2017-10-31 15:21] LABS: INR 1.43 (0.85-1.17); PROTIME 16.9 SECONDS (11.6-15.0)
[2017-10-31 15:22] LABS: HEMATOCRIT 27.7 % (36.0-48.0); HEMOGLOBIN 9.4 g/dL (12-16); MCH 28.6 pg (26.0-34.0); MCHC 33.9 g/dL (31.0-37.0); MCV 84.2 fL (80.0-100.0); MEAN PLATELET VOLUME 9.7 fL (7.4-10.4); RBC 3.29 10x6/uL (4.00-5.40); RDW 16.5 % (11.5-14.5); WBC 9.3 10x3/uL (4.8-10.8)
[2017-10-31 15:43] LABS: ANION GAP 24.2 mmol/L (8-16); CARBON DIOXIDE 23.3 mmol/L (21.0-32.0); CREATININE - SERUM 4.1 mg/dL (0.6-1.3); POTASSIUM - SERUM 3.5 mmol/L (3.5-5.1)
[2017-10-31 16:20] LABS: INR 1.29 (0.85-1.17); PROTIME 15.7 SECONDS (11.6-15.0)
[2017-10-31 16:21] LABS: APTT 37.2 SECONDS (22.8-39.4)
[2017-11-01] VITALS (103 sets, daily range): BP systolic 90–141; BP diastolic 39–99
[2017-11-01 06:35] LABS: BASOPHILS 0.2 % (0-2); EOSINOPHILS 0 % (0-7); HEMATOCRIT 21.5 % (36.0-48.0); IMMATURE GRANULOCYTES 0.5 % (0-5); MCH 28.3 pg (26.0-34.0); MCV 83.3 fL (80.0-100.0); MEAN PLATELET VOLUME 9.8 fL (7.4-10.4); NEUTROPHILS 82.3 % (40-80); PLATELET COUNT 123 10x3/uL (130-400); RBC 2.58 10x6/uL (4.00-5.40); RDW 17.1 % (11.5-14.5); WBC 13.2 10x3/uL (4.8-10.8)
[2017-11-01 06:38] LABS: HEMOGLOBIN 7.3 g/dL (12-16)
[2017-11-01 07:06] LABS: BILIRUBIN - TOTAL 1.26 mg/dL (0.2-1.3); CALCIUM 10.3 mg/dL (8.5-10.1); CARBON DIOXIDE 27.6 mmol/L (21.0-32.0); PHOSPHOROUS 4.6 mg/dL (2.5-4.9); PROTEIN - SERUM 5.5 g/dL (6.4-8.2)
[2017-11-01 07:33] LABS: ALBUMIN 3.1 g/dL (3.4-5.0); CREATININE - SERUM 5.9 mg/dL (0.6-1.3); POTASSIUM - SERUM 3.6 mmol/L (3.5-5.1)
[2017-11-01 07:34] LABS: MAGNESIUM - SERUM 3.6 mg/dL (1.8-2.4)
[2017-11-02] VITALS (86 sets, daily range): BP systolic 98–144; BP diastolic 36–56
[2017-11-02 06:13] LABS: BASOPHILS 0.2 % (0-2); EOSINOPHILS 1.7 % (0-7); IMMATURE GRANULOCYTES 0.3 % (0-5); LYMPHOCYTES 7.2 % (15-50); MCH 28.7 pg (26.0-34.0); MCHC 34.8 g/dL (31.0-37.0); MCV 82.6 fL (80.0-100.0); MEAN PLATELET VOLUME 9.8 fL (7.4-10.4); MONOCYTES 5.8 % (2-11); NEUTROPHILS 84.8 % (40-80); RDW 17.2 % (11.5-14.5); WBC 13.9 10x3/uL (4.8-10.8)
[2017-11-02 06:28] LABS: HEMOGLOBIN 9.4 g/dL (12-16); RBC 3.27 10x6/uL (4.00-5.40)
[2017-11-02 06:29] LABS: PLATELET COUNT 77 10x3/uL (130-400)
[2017-11-02 06:48] LABS: ALBUMIN 2.9 g/dL (3.4-5.0); ANION GAP 14.4 mmol/L (8-16); BILIRUBIN - TOTAL 1.47 mg/dL (0.2-1.3); CALCIUM 8.8 mg/dL (8.5-10.1); PROTEIN - SERUM 5.8 g/dL (6.4-8.2)
[2017-11-02 06:49] LABS: PHOSPHOROUS 7.2 mg/dL (2.5-4.9); POTASSIUM - SERUM 4.4 mmol/L (3.5-5.1)
[2017-11-03] VITALS (28 sets, daily range): BP systolic 97–153; BP diastolic 47–70
[2017-11-03 06:34] LABS: BASOPHILS 0.1 % (0-2); EOSINOPHILS 1.6 % (0-7); HEMATOCRIT 27.4 % (36.0-48.0); HEMOGLOBIN 9.4 g/dL (12-16); IMMATURE GRANULOCYTES 0.4 % (0-5); LYMPHOCYTES 5.7 % (15-50); MCH 28.6 pg (26.0-34.0); MCHC 34.3 g/dL (31.0-37.0); MCV 83.3 fL (80.0-100.0); MEAN PLATELET VOLUME 9.4 fL (7.4-10.4); MONOCYTES 5.4 % (2-11); NEUTROPHILS 86.8 % (40-80); PLATELET COUNT 80 10x3/uL (130-400); RBC 3.29 10x6/uL (4.00-5.40); RDW 17.1 % (11.5-14.5); WBC 13.6 10x3/uL (4.8-10.8)
[2017-11-03 06:50] LABS: ALBUMIN 2.6 g/dL (3.4-5.0); ANION GAP 12.9 mmol/L (8-16); BILIRUBIN - TOTAL 1.08 mg/dL (0.2-1.3); CALCIUM 8.6 mg/dL (8.5-10.1); CARBON DIOXIDE 28.6 mmol/L (21.0-32.0); CREATININE - SERUM 6.5 mg/dL (0.6-1.3); POTASSIUM - SERUM 4.5 mmol/L (3.5-5.1); PROTEIN - SERUM 6.1 g/dL (6.4-8.2)
[2017-11-03 06:57] LABS: INR 1.15 (0.85-1.17); PROTIME 14.3 SECONDS (11.6-15.0)
[2017-11-03 06:58] LABS: APTT 31.9 SECONDS (22.8-39.4); D-DIMER-QUANTITATIVE 2.64 ug/mLFEU (0.20-0.54)
[2017-11-04] VITALS (24 sets, daily range): BP systolic 89–158; BP diastolic 37–70
[2017-11-04 06:15] LABS: BASOPHILS 0.2 % (0-2); EOSINOPHILS 0.9 % (0-7); HEMATOCRIT 27.1 % (36.0-48.0); HEMOGLOBIN 9.4 g/dL (12-16); IMMATURE GRANULOCYTES 0.4 % (0-5); LYMPHOCYTES 10.3 % (15-50); MCH 28.8 pg (26.0-34.0); MCHC 34.7 g/dL (31.0-37.0); MCV 83.1 fL (80.0-100.0); MEAN PLATELET VOLUME 10.2 fL (7.4-10.4); MONOCYTES 7.5 % (2-11); NEUTROPHILS 80.7 % (40-80); RBC 3.26 10x6/uL (4.00-5.40); RDW 16.7 % (11.5-14.5); WBC 12.5 10x3/uL (4.8-10.8)
[2017-11-04 06:17] LABS: PLATELET COUNT 111 10x3/uL (130-400)
[2017-11-04 06:37] LABS: ALBUMIN 2.4 g/dL (3.4-5.0); ANION GAP 14.3 mmol/L (8-16); CALCIUM 8.3 mg/dL (8.5-10.1); CARBON DIOXIDE 27.1 mmol/L (21.0-32.0); CREATININE - SERUM 5.7 mg/dL (0.6-1.3); PHOSPHOROUS 5.7 mg/dL (2.5-4.9); POTASSIUM - SERUM 4.4 mmol/L (3.5-5.1); PROTEIN - SERUM 6.1 g/dL (6.4-8.2)
[2017-11-05] VITALS (24 sets, daily range): BP systolic 90–139; BP diastolic 36–53
[2017-11-05 06:23] LABS: BASOPHILS 0.1 % (0-2); EOSINOPHILS 0.8 % (0-7); HEMATOCRIT 25.4 % (36.0-48.0); HEMOGLOBIN 8.6 g/dL (12-16); IMMATURE GRANULOCYTES 0.5 % (0-5); LYMPHOCYTES 10.5 % (15-50); MCH 28.3 pg (26.0-34.0); MCHC 33.9 g/dL (31.0-37.0); MCV 83.6 fL (80.0-100.0); MEAN PLATELET VOLUME 10.5 fL (7.4-10.4); MONOCYTES 8.6 % (2-11); NEUTROPHILS 79.5 % (40-80); PLATELET COUNT 102 10x3/uL (130-400); RBC 3.04 10x6/uL (4.00-5.40); RDW 16.5 % (11.5-14.5)
[2017-11-05 06:33] LABS: WBC 8.8 10x3/uL (4.8-10.8)
[2017-11-05 06:52] LABS: ALBUMIN 2.4 g/dL (3.4-5.0); ANION GAP 11.8 mmol/L (8-16); BILIRUBIN - TOTAL 1.02 mg/dL (0.2-1.3); CALCIUM 8.3 mg/dL (8.5-10.1); CARBON DIOXIDE 29.4 mmol/L (21.0-32.0); CREATININE - SERUM 5.6 mg/dL (0.6-1.3); POTASSIUM - SERUM 4.2 mmol/L (3.5-5.1); PROTEIN - SERUM 5.9 g/dL (6.4-8.2)
[2017-11-06] VITALS (23 sets, daily range): BP systolic 98–142; BP diastolic 45–98
[2017-11-06 05:24] LABS: BASOPHILS 0.1 % (0-2); EOSINOPHILS 1.2 % (0-7); HEMOGLOBIN 8.5 g/dL (12-16); IMMATURE GRANULOCYTES 0.8 % (0-5); LYMPHOCYTES 10.2 % (15-50); MCH 28.5 pg (26.0-34.0); MCV 83.9 fL (80.0-100.0); MEAN PLATELET VOLUME 9.9 fL (7.4-10.4); NEUTROPHILS 76.7 % (40-80); RBC 2.98 10x6/uL (4.00-5.40); RDW 16.6 % (11.5-14.5); WBC 7.7 10x3/uL (4.8-10.8)
[2017-11-06 05:26] LABS: PLATELET COUNT 125 10x3/uL (130-400)
[2017-11-06 05:41] LABS: ALBUMIN 2.2 g/dL (3.4-5.0); ANION GAP 12.2 mmol/L (8-16); BILIRUBIN - TOTAL 0.86 mg/dL (0.2-1.3); CALCIUM 8.1 mg/dL (8.5-10.1); CARBON DIOXIDE 28.8 mmol/L (21.0-32.0); CREATININE - SERUM 5.3 mg/dL (0.6-1.3); PHOSPHOROUS 5.1 mg/dL (2.5-4.9); PROTEIN - SERUM 5.8 g/dL (6.4-8.2)
[2017-11-07] VITALS (24 sets, daily range): BP systolic 101–146; BP diastolic 42–72
[2017-11-07 06:59] LABS: ALBUMIN 2.4 g/dL (3.4-5.0); ANION GAP 16.6 mmol/L (8-16); BILIRUBIN - TOTAL 0.9 mg/dL (0.2-1.3); CALCIUM 8.2 mg/dL (8.5-10.1); CARBON DIOXIDE 25.7 mmol/L (21.0-32.0); POTASSIUM - SERUM 4.3 mmol/L (3.5-5.1); PROTEIN - SERUM 6.2 g/dL (6.4-8.2)
[2017-11-07 07:00] LABS: CREATININE - SERUM 6.8 mg/dL (0.6-1.3)
[2017-11-07 07:11] LABS: BASOPHILS 0.3 % (0-2); EOSINOPHILS 1.3 % (0-7); HEMATOCRIT 25.8 % (36.0-48.0); HEMOGLOBIN 8.7 g/dL (12-16); IMMATURE GRANULOCYTES 1.3 % (0-5); LYMPHOCYTES 12.1 % (15-50); MCH 28.2 pg (26.0-34.0); MCHC 33.7 g/dL (31.0-37.0); MCV 83.8 fL (80.0-100.0); MEAN PLATELET VOLUME 9.5 fL (7.4-10.4); MONOCYTES 11.8 % (2-11); NEUTROPHILS 73.2 % (40-80); PLATELET COUNT 183 10x3/uL (130-400); RBC 3.08 10x6/uL (4.00-5.40); RDW 16.6 % (11.5-14.5); WBC 7.1 10x3/uL (4.8-10.8)
[2017-11-07 17:10] LABS: HEPATITIS C ANTIBODY <0.1 (0.0-0.9)
[2017-11-08] VITALS (24 sets, daily range): BP systolic 108–148; BP diastolic 41–69
[2017-11-08 06:50] LABS: ALBUMIN 2.4 g/dL (3.4-5.0); ANION GAP 14.5 mmol/L (8-16); CALCIUM 8.3 mg/dL (8.5-10.1); CARBON DIOXIDE 26.6 mmol/L (21.0-32.0); CREATININE - SERUM 5.5 mg/dL (0.6-1.3); MAGNESIUM - SERUM 2.1 mg/dL (1.8-2.4); POTASSIUM - SERUM 4.1 mmol/L (3.5-5.1); PROTEIN - SERUM 6.5 g/dL (6.4-8.2)
[2017-11-08 06:56] LABS: BASOPHILS 0.2 % (0-2); EOSINOPHILS 0.8 % (0-7); HEMATOCRIT 26.7 % (36.0-48.0); HEMOGLOBIN 9.1 g/dL (12-16); IMMATURE GRANULOCYTES 0.9 % (0-5); LYMPHOCYTES 11.3 % (15-50); MCH 28.6 pg (26.0-34.0); MCHC 34.1 g/dL (31.0-37.0); MEAN PLATELET VOLUME 9.5 fL (7.4-10.4); MONOCYTES 14.1 % (2-11); NEUTROPHILS 72.7 % (40-80); PLATELET COUNT 218 10x3/uL (130-400); RBC 3.18 10x6/uL (4.00-5.40); RDW 16.4 % (11.5-14.5); WBC 6.4 10x3/uL (4.8-10.8)
[2017-11-09] VITALS (24 sets, daily range): BP systolic 112–158; BP diastolic 48–69
[2017-11-09 06:34] LABS: BASOPHILS 0.3 % (0-2); EOSINOPHILS 0.6 % (0-7); HEMATOCRIT 28.4 % (36.0-48.0); HEMOGLOBIN 9.2 g/dL (12-16); LYMPHOCYTES 17.2 % (15-50); MCH 27.7 pg (26.0-34.0); MCHC 32.4 g/dL (31.0-37.0); MCV 85.5 fL (80.0-100.0); MEAN PLATELET VOLUME 9.1 fL (7.4-10.4); MONOCYTES 14.3 % (2-11); NEUTROPHILS 66.6 % (40-80); PLATELET COUNT 248 10x3/uL (130-400); RBC 3.32 10x6/uL (4.00-5.40); RDW 16.6 % (11.5-14.5); WBC 6.2 10x3/uL (4.8-10.8)
[2017-11-09 07:25] LABS: ALBUMIN 2.5 g/dL (3.4-5.0); ANION GAP 15.1 mmol/L (8-16); BILIRUBIN - TOTAL 0.86 mg/dL (0.2-1.3); CALCIUM 8.2 mg/dL (8.5-10.1); CARBON DIOXIDE 28.5 mmol/L (21.0-32.0); CREATININE - SERUM 5.7 mg/dL (0.6-1.3); POTASSIUM - SERUM 4.6 mmol/L (3.5-5.1); PROTEIN - SERUM 6.3 g/dL (6.4-8.2)
[2017-11-10] VITALS (25 sets, daily range): BP systolic 99–135; BP diastolic 48–67
[2017-11-10 04:16] LABS: BASOPHILS 0.1 % (0-2); EOSINOPHILS 1.2 % (0-7); HEMATOCRIT 27.1 % (36.0-48.0); HEMOGLOBIN 8.9 g/dL (12-16); IMMATURE GRANULOCYTES 0.7 % (0-5); LYMPHOCYTES 17.3 % (15-50); MCH 28.1 pg (26.0-34.0); MCHC 32.8 g/dL (31.0-37.0); MCV 85.5 fL (80.0-100.0); MONOCYTES 9.6 % (2-11); NEUTROPHILS 71.1 % (40-80); PLATELET COUNT 263 10x3/uL (130-400); RBC 3.17 10x6/uL (4.00-5.40); RDW 16.4 % (11.5-14.5); WBC 6.9 10x3/uL (4.8-10.8)
[2017-11-10 04:41] LABS: ALBUMIN 2.3 g/dL (3.4-5.0); ANION GAP 13.1 mmol/L (8-16); BILIRUBIN - TOTAL 0.84 mg/dL (0.2-1.3); CALCIUM 8.1 mg/dL (8.5-10.1); CARBON DIOXIDE 29.6 mmol/L (21.0-32.0); POTASSIUM - SERUM 4.7 mmol/L (3.5-5.1); PROTEIN - SERUM 6.1 g/dL (6.4-8.2)
[2017-11-10 04:47] LABS: CREATININE - SERUM 7.2 mg/dL (0.6-1.3)
[2017-11-11] VITALS (24 sets, daily range): BP systolic 110–149; BP diastolic 44–66
[2017-11-11 06:41] LABS: BASOPHILS 0.2 % (0-2); EOSINOPHILS 0.8 % (0-7); HEMATOCRIT 28.8 % (36.0-48.0); HEMOGLOBIN 9.3 g/dL (12-16); IMMATURE GRANULOCYTES 0.7 % (0-5); LYMPHOCYTES 14.3 % (15-50); MCH 27.6 pg (26.0-34.0); MCHC 32.3 g/dL (31.0-37.0); MCV 85.5 fL (80.0-100.0); MEAN PLATELET VOLUME 9.2 fL (7.4-10.4); MONOCYTES 6.3 % (2-11); NEUTROPHILS 77.7 % (40-80); PLATELET COUNT 254 10x3/uL (130-400); RBC 3.37 10x6/uL (4.00-5.40); RDW 16.4 % (11.5-14.5)
[2017-11-11 06:49] LABS: WBC 8.7 10x3/uL (4.8-10.8)
[2017-11-11 06:53] LABS: ANION GAP 13.6 mmol/L (8-16); CARBON DIOXIDE 28.8 mmol/L (21.0-32.0); CREATININE - SERUM 6.3 mg/dL (0.6-1.3); PHOSPHOROUS 5.1 mg/dL (2.5-4.9); POTASSIUM - SERUM 4.4 mmol/L (3.5-5.1)
[2017-11-12] VITALS (22 sets, daily range): BP systolic 102–144; BP diastolic 45–66
[2017-11-12 06:05] LABS: BASOPHILS 0.2 % (0-2); EOSINOPHILS 0.6 % (0-7); HEMATOCRIT 29.8 % (36.0-48.0); HEMOGLOBIN 9.7 g/dL (12-16); IMMATURE GRANULOCYTES 0.6 % (0-5); LYMPHOCYTES 13.6 % (15-50); MCH 27.8 pg (26.0-34.0); MCHC 32.6 g/dL (31.0-37.0); MCV 85.4 fL (80.0-100.0); MEAN PLATELET VOLUME 9.2 fL (7.4-10.4); MONOCYTES 6.7 % (2-11); NEUTROPHILS 78.3 % (40-80); PLATELET COUNT 253 10x3/uL (130-400); RBC 3.49 10x6/uL (4.00-5.40); RDW 16.6 % (11.5-14.5)
[2017-11-12 07:36] LABS: ANION GAP 17.9 mmol/L (8-16); CALCIUM 8.4 mg/dL (8.5-10.1); CARBON DIOXIDE 24.5 mmol/L (21.0-32.0); CREATININE - SERUM 8.1 mg/dL (0.6-1.3); PHOSPHOROUS 5.7 mg/dL (2.5-4.9); POTASSIUM - SERUM 4.4 mmol/L (3.5-5.1)
[2017-11-13] VITALS (24 sets, daily range): BP systolic 90–129; BP diastolic 36–69
[2017-11-13 06:31] LABS: ANION GAP 10.5 mmol/L (8-16); CALCIUM 8.5 mg/dL (8.5-10.1); CREATININE - SERUM 6.8 mg/dL (0.6-1.3); PHOSPHOROUS 4.9 mg/dL (2.5-4.9); POTASSIUM - SERUM 3.9 mmol/L (3.5-5.1)
[2017-11-13 06:32] LABS: CARBON DIOXIDE 31.4 mmol/L (21.0-32.0)
[2017-11-13 07:42] LABS: BASOPHILS 0.1 % (0-2); EOSINOPHILS 0.8 % (0-7); HEMOGLOBIN 9.3 g/dL (12-16); IMMATURE GRANULOCYTES 0.6 % (0-5); LYMPHOCYTES 11.4 % (15-50); MCH 28.1 pg (26.0-34.0); MCHC 33.2 g/dL (31.0-37.0); MCV 84.6 fL (80.0-100.0); MEAN PLATELET VOLUME 8.9 fL (7.4-10.4); MONOCYTES 8.9 % (2-11); NEUTROPHILS 78.2 % (40-80); PLATELET COUNT 239 10x3/uL (130-400); RBC 3.31 10x6/uL (4.00-5.40); RDW 16.4 % (11.5-14.5); WBC 8.2 10x3/uL (4.8-10.8)
[2017-11-14] VITALS (12 sets, daily range): BP systolic 93–121; BP diastolic 46–58
[2017-11-14 03:54] LABS: BASOPHILS 0.3 % (0-2); EOSINOPHILS 1.1 % (0-7); HEMOGLOBIN 8.8 g/dL (12-16); IMMATURE GRANULOCYTES 0.5 % (0-5); LYMPHOCYTES 15.7 % (15-50); MCHC 32.6 g/dL (31.0-37.0); MEAN PLATELET VOLUME 8.9 fL (7.4-10.4); MONOCYTES 6.2 % (2-11); NEUTROPHILS 76.2 % (40-80); PLATELET COUNT 219 10x3/uL (130-400); RBC 3.14 10x6/uL (4.00-5.40); RDW 16.5 % (11.5-14.5); WBC 7.9 10x3/uL (4.8-10.8)
[2017-11-14 04:33] LABS: ANION GAP 13.7 mmol/L (8-16); CALCIUM 8.2 mg/dL (8.5-10.1); CARBON DIOXIDE 29.3 mmol/L (21.0-32.0)
[2017-11-14] MEDS ORDERED: ALBUTEROL2.5 MG/3 M UPD (09:24)
[2017-11-14] MEDS ORDERED: ASPIRIN81 MG PO (09:25)
[2017-11-14] MEDS ORDERED: VELTASSA8.4 GM PO (09:25)
[2017-11-14] MEDS ORDERED: COLACE100 MG PO (09:25)
[2017-11-14] MEDS ORDERED: PROTONIX40 MG PO (09:26)
[2017-11-14] MEDS ORDERED: CELEXA20 MG PO (09:54)
[2017-11-14] MEDS ORDERED: CATAPRES0.1 MG PO (09:54)
[2017-11-14] MEDS ORDERED: CORDARONE200 MG PO (09:54)
[2017-11-14] MEDS ORDERED: RENAGEL800 MG PO (09:54)
[2017-11-14] MEDS ORDERED: TESSALON PERLE100 MG PO (09:54)
[2017-11-14] MEDS ORDERED: MUCINEX DM ER1 EAC1 PO (09:54)
[2017-11-14] MEDS ORDERED: PROCRIT/EP4000 UNITS SC (09:54)
[2017-11-14] MEDS ORDERED: MYCELEX TROCHE10 MG MM (09:54)
[2017-11-15 03:00] VITALS: BP 106/58
[2017-11-15 06:28] LABS: BASOPHILS 0.3 % (0-2); EOSINOPHILS 1.5 % (0-7); HEMATOCRIT 27.3 % (36.0-48.0); IMMATURE GRANULOCYTES 0.1 % (0-5); LYMPHOCYTES 14.6 % (15-50); MCH 28.2 pg (26.0-34.0); MCV 85.6 fL (80.0-100.0); MEAN PLATELET VOLUME 9.1 fL (7.4-10.4); MONOCYTES 8.6 % (2-11); NEUTROPHILS 74.9 % (40-80); PLATELET COUNT 208 10x3/uL (130-400); RBC 3.19 10x6/uL (4.00-5.40); RDW 16.5 % (11.5-14.5); WBC 7.1 10x3/uL (4.8-10.8)
[2017-11-15 06:49] LABS: ANION GAP 13.5 mmol/L (8-16); CALCIUM 8.5 mg/dL (8.5-10.1); CARBON DIOXIDE 28.7 mmol/L (21.0-32.0); CREATININE - SERUM 9.4 mg/dL (0.6-1.3); PHOSPHOROUS 5.5 mg/dL (2.5-4.9); POTASSIUM - SERUM 4.2 mmol/L (3.5-5.1)
[2017-11-15 07:30] VITALS: BP 109/61
[2017-11-15 12:00] VITALS: BP 111/74
[2017-11-22 08:08] LABS: FUNGUS MYCOLOGY CULTURE Final report (())
== END 2017-11-15 16:30 | DRG 216 ==
LOC: D.ER 02:15 → D.EDHOLD 03:57 → D.CVICU 03:57 → D.ICU 03:57 → D.M2 03:57 → D.ICU 10-21 13:40 → D.M2 10-27 00:24 → D.SDCHOLD 10-27 16:46 → D.M2 10-27 16:46 → D.SDCHOLD 10-27 16:48 → D.M2 10-27 16:48 → D.ICU 10-28 15:27 → D.M2 10-28 15:27 → D.SDCHOLD 10-28 15:40 → D.M2 10-28 15:45 → D.CVICU 10-31 08:39
PROVIDERS: Family Medicine; Internal Medicine; Internal Medicine Cardiovascular Disease; Internal Medicine Interventional Cardiology; Internal Medicine Nephrology; Internal Medicine Pulmonary Disease
PROC: 0JH63XZ Insertion of Tunneled Vascular Access Device into Chest Subcutaneous Tissue and Fascia, Percutaneous Approach (ICD-10-PCS; 2017-10-21)
PROC: 02HV33Z Insertion of Infusion Device into Superior Vena Cava, Percutaneous Approach (ICD-10-PCS; 2017-10-21)
PROC: B2151ZZ Fluoroscopy of Left Heart using Low Osmolar Contrast (ICD-10-PCS; 2017-10-24)
PROC: 4A023N7 Measurement of Cardiac Sampling and Pressure, Left Heart, Percutaneous Approach (ICD-10-PCS; 2017-10-24)
PROC: B2111ZZ Fluoroscopy of Multiple Coronary Arteries using Low Osmolar Contrast (ICD-10-PCS; principal; 2017-10-24 11:00)
PROC: 0W993ZZ Drainage of Right Pleural Cavity, Percutaneous Approach (ICD-10-PCS; 2017-10-25)
PROC: 02100ZC Bypass Coronary Artery, One Artery from Thoracic Artery, Open Approach (ICD-10-PCS; 2017-10-31)
PROC: 021109W Bypass Coronary Artery, Two Arteries from Aorta with Autologous Venous Tissue, Open Approach (ICD-10-PCS; 2017-10-31)
PROC: 06BP0ZZ Excision of Right Saphenous Vein, Open Approach (ICD-10-PCS; 2017-10-31)
PROC: 02BG0ZZ Excision of Mitral Valve, Open Approach (ICD-10-PCS; 2017-10-31)
PROC: B24BZZ4 Ultrasonography of Heart with Aorta, Transesophageal (ICD-10-PCS; 2017-10-31)
PROC: 5A1221Z Performance of Cardiac Output, Continuous (ICD-10-PCS; 2017-10-31)
PROC: 02UG0JZ Supplement Mitral Valve with Synthetic Substitute, Open Approach (ICD-10-PCS; 2017-10-31 07:30)
DX: I34.0 Nonrheumatic mitral (valve) insufficiency (principal); I50.33 Acute on chronic diastolic (congestive) heart failure; J96.21 Acute and chronic respiratory failure with hypoxia; J81.1 Chronic pulmonary edema; I13.2 Hypertensive heart and chronic kidney disease with heart failure and with stage 5 chronic kidney disease, or end stage renal disease; N18.5 Chronic kidney disease, stage 5; J98.11 Atelectasis; J90 Pleural effusion, not elsewhere classified; N17.9 Acute kidney failure, unspecified; D50.9 Iron deficiency anemia, unspecified; J30.9 Allergic rhinitis, unspecified; E87.6 Hypokalemia; D63.1 Anemia in chronic kidney disease; I25.10 Atherosclerotic heart disease of native coronary artery without angina pectoris; F41.9 Anxiety disorder, unspecified; E55.9 Vitamin D deficiency, unspecified; D69.6 Thrombocytopenia, unspecified; R53.81 Other malaise

== ENCOUNTER 2017-11-15 17:15 | Inpatient (IN) | payer OTHER ==
[~2017-11-15] VITALS: Ht 170.2 cm; Wt 75.7 kg
--- NOTE | ~2017-11-15 | RHP ---
PATIENT: SHILO ARREOLA MEDICAL RECORD: [id number] ACCOUNT: [id number] LOCATION[id number] : 51 ADMISSION DATE: 11/15/17 REHABILITATION HISTORY AND PHYSICAL EXAMINATION POST ADMISSION PHYSICIAN EXAMINATION DATE OF ADMISSION: 11/15/2017 ADMITTING DIAGNOSIS: Critical illness myopathy. HISTORY OF PRESENT ILLNESS: The patient is admitted to inpatient rehab with a neurological condition. She is a 62-year-old female patient with history of hypertension and chronic kidney disease. She has had a fistula. She is awaiting for maturation, started using it for hemodialysis. She has got depression, presented to ED with complaints of sudden increase in shortness of breath. She has been having increased lower extremity edema for several weeks prior to the acute hospital admit. She was hospitalized for pulmonary edema. During that admission, an echo demonstrated preserved left ventricular function, diastolic dysfunction, lmrcpanv-iq-snsktj mitral regurg and possible chordae rupture. The patient was admitted with volume overload, elevated BNP of 35,000 with CHF. She had an extensive hospitalization, was followed by cardiology, pulmonary, cardiovascular surgeon, nephrology. She has undergone coronary artery bypass grafting with mitral valvuloplasty in the past with Dr. Almazan. Her renal functions continued to decline. A HemoSplit was placed and she was placed on dialysis. She has significant weakness, more proximal than distal. She began to progress with therapy slowly. She lives at home with her and was completely independent with activities of daily living and with her mobility. BARRIERS TO DISCHARGE: Include telemetry, recent CABG, need hemodialysis, supplemental O2. She has not been on O2 in the past. She is severely debilitated with self-care deficit, decreased endurance. She is going to need some durable medical equipment also upon discharge. She is currently set up for max assist with ADLs and wohnisin-to-yzr assist for mobility. She and her plan for her to return home after acute inpatient stay hopefully at her prior level of functioning or better if possible. 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 PAST MEDICAL HISTORY: Significant for chronic renal insufficiency, hypertension, CHF, shortness of breath and depression. PAST SURGICAL HISTORY: Includes a fistula placed to her arm. ALLERGIES: No known drug allergies. CURRENT MEDICATIONS: Include Cozaar 100 mg daily. She is on heparin injection daily, Ventolin updrafts. She is on sevelamer 1600 mg t.i.d. with meals, on Veltassa 8.4 grams daily, Protonix 40 mg daily, Lasix 80 mg daily, Julisa 60 mg daily, citalopram 40 mg daily, vitamin D 1000 units daily, aspirin chewable 81 HISTORY AND PHYSICAL [id number] SHILO ARREOLA MACKENZIE mg daily, amlodipine 10 mg daily, amiodarone 200 mg daily, polyethylene glycol 17 grams in 8 ounces of water daily, sodium bicarbonate 650 b.i.d., Mucinex D daily, Colace 100 mg b.i.d., diphenhydramine 25 mg every 6 hours p.r.n., Mycelex Guicho t.i.d., clonidine p.r.n. and Tessalon Perles 100 mg t.i.d. HABITS: No alcohol or tobacco use. FAMILY HISTORY: Noncontributory. SOCIAL HISTORY: The patient hopes to return back home and get back to her prior level of functioning. REVIEW OF SYSTEMS: GENERAL: Does complain weakness and fatigue. HEENT: Denies cold, cough, or congestion. CARDIOVASCULAR: Denies chest pain. PHYSICAL EXAMINATION: VITAL SIGNS: Stable, afebrile. GENERAL: An elderly female, in no acute distress, alert upon exam. HEENT: Normocephalic and atraumatic. Mucosa moist. NECK: Supple without adenopathy. LUNGS: Clear. HEART: Regular rate and rhythm. ABDOMEN: Benign. EXTREMITIES: No clubbing, cyanosis or edema. NEUROLOGIC: She is intact. LABORATORY DATA: White count 6.5, H&H 9 and 28 and platelet count was noted to be 209. Her sodium is 138, potassium 3.8, BUN and creatinine of 62 and 7.6 and blood sugar is noted to be 75. ASSESSMENT: This is a 62-year-old female patient admitted to rehab with a working diagnosis of critical illness myopathy. The patient has potential to make improvement. We instituted the following multidisciplinary therapies including, but not limited to physical, occupational, respiratory, speech, nutritional services, prosthetics and orthotics. Given her complex medical condition and risk for more complications, rehabilitation services cannot be provided at a low level of care such as skilled nurse facility. PLAN: 1. Admit to [facility] for intensive inpatient therapy to include the following disciplines: A. Physical therapy to improve gait, all transfer skills and bed mobility to a modified independent level. B. Occupational therapy to a to a modified independent level. C. Case management to assist with discharge planning and placement options. D. Nutrition to assist with nutritional needs. E. Rehabilitation nursing to assist in monitoring the patient's underlying medical conditions and to assist with any type of bowel or bladder management. 2. The patient's current medication and medical care will be continued. 3. The patient will be placed on standard fall precautions. 4. The patient's estimated length of stay is approximately 7 to 10 days. 5. Discuss this patient during care team staff meeting this week. HISTORY AND PHYSICAL [id number] SHILO ARREOLA TRANSINT:[id number] Voice Confirmation ID: [id number] DOCUMENT ID: [id number] ELLIOTT notes whether there has been none or any medical/functional change since admission: - No change since prescreen. ELLIOTT attests patient continues to be appropriate for IRF: - Continues to be appropriate. FAZAL OATES MD at 1845 CC: [id number] DICTATION DATE: 11/16/17 0848 CAMPUS PRESIDENT: 11/16/17 0937 ADM IN [facility] [address] [place] [address]
[~2017-11-15 17:15] MED LIST changes: +ALBUTEROL2.5 MG/3 M UPD; +ASPIRIN81 MG PO; +CATAPRES0.1 MG PO; +COLACE100 MG PO; +CORDARONE200 MG PO; +MUCINEX DM ER1 EAC1 PO; +MYCELEX TROCHE10 MG MM; +PROCRIT/EP4000 UNITS SC; +PROTONIX40 MG PO; +RENAGEL800 MG PO; +TESSALON PERLE100 MG PO
[2017-11-15 17:44] VITALS: BP 130/56
[2017-11-15 19:00] VITALS: BP 130/56
[2017-11-16 05:56] VITALS: BP 132/84
[2017-11-16 07:01] LABS: BASOPHILS 0.2 % (0-2); EOSINOPHILS 2.5 % (0-7); HEMATOCRIT 28.1 % (36.0-48.0); HEMOGLOBIN 9.2 g/dL (12-16); IMMATURE GRANULOCYTES 0.5 % (0-5); LYMPHOCYTES 16.5 % (15-50); MCHC 32.7 g/dL (31.0-37.0); MCV 85.7 fL (80.0-100.0); MEAN PLATELET VOLUME 9.7 fL (7.4-10.4); MONOCYTES 8.3 % (2-11); PLATELET COUNT 209 10x3/uL (130-400); RBC 3.28 10x6/uL (4.00-5.40); RDW 16.4 % (11.5-14.5); WBC 6.5 10x3/uL (4.8-10.8)
[2017-11-16 07:17] LABS: ANION GAP 14.3 mmol/L (8-16); CALCIUM 8.3 mg/dL (8.5-10.1); CARBON DIOXIDE 28.5 mmol/L (21.0-32.0); CREATININE - SERUM 7.6 mg/dL (0.6-1.3); POTASSIUM - SERUM 3.8 mmol/L (3.5-5.1)
[2017-11-16 07:49] VITALS: BP 113/53
[2017-11-16 13:18] VITALS: Ht 170.2 cm; Wt 75.7 kg
[2017-11-16 18:25] VITALS: BP 133/60
[2017-11-16 19:00] VITALS: BP 118/55
[2017-11-17 00:14] VITALS: BP 105/51
[2017-11-17 01:17] VITALS: BP 105/81
[2017-11-17 06:04] VITALS: BP 113/56
[2017-11-17 12:08] VITALS: BP 129/61
[2017-11-17 18:00] VITALS: BP 113/50
[2017-11-18 00:49] VITALS: BP 118/58
[2017-11-18 05:31] VITALS: BP 135/65
[2017-11-18 05:58] VITALS: BP 126/58
[2017-11-18 12:10] VITALS: BP 143/61
[2017-11-18 18:00] VITALS: BP 112/52
[2017-11-19 00:06] VITALS: BP 121/68
[2017-11-19 05:59] VITALS: BP 111/68
[2017-11-19 06:50] LABS: BASOPHILS 0.3 % (0-2); EOSINOPHILS 3.9 % (0-7); HEMOGLOBIN 8.8 g/dL (12-16); IMMATURE GRANULOCYTES 0.2 % (0-5); LYMPHOCYTES 18.7 % (15-50); MCH 27.4 pg (26.0-34.0); MCHC 31.4 g/dL (31.0-37.0); MCV 87.2 fL (80.0-100.0); NEUTROPHILS 67.9 % (40-80); RBC 3.21 10x6/uL (4.00-5.40); RDW 16.1 % (11.5-14.5); WBC 5.9 10x3/uL (4.8-10.8)
[2017-11-19 06:52] LABS: PLATELET COUNT 157 10x3/uL (130-400)
[2017-11-19 07:04] LABS: ANION GAP 12.3 mmol/L (8-16); CALCIUM 8.3 mg/dL (8.5-10.1); CARBON DIOXIDE 26.5 mmol/L (21.0-32.0); CREATININE - SERUM 8.3 mg/dL (0.6-1.3); PHOSPHOROUS 4.8 mg/dL (2.5-4.9); POTASSIUM - SERUM 3.8 mmol/L (3.5-5.1)
[2017-11-19 07:25] VITALS: BP 128/56
[2017-11-19 12:46] VITALS: BP 105/55
[2017-11-19 12:47] VITALS: BP 105/55
[2017-11-19 18:05] VITALS: BP 115/52
[2017-11-20 00:17] VITALS: BP 103/58
[2017-11-20 05:36] VITALS: BP 101/59
[2017-11-20 12:03] VITALS: BP 100/54
[2017-11-20 17:40] VITALS: BP 126/60
[2017-11-21 05:58] VITALS: BP 125/74
[2017-11-21 11:51] VITALS: BP 104/49
[2017-11-21 18:00] VITALS: BP 118/43
[2017-11-22 00:30] VITALS: BP 115/68
[2017-11-22 05:44] VITALS: BP 129/60
[2017-11-22 11:44] VITALS: BP 115/51
[2017-11-22 18:00] VITALS: BP 121/49
[2017-11-23 00:05] VITALS: BP 127/57
[2017-11-23 05:45] VITALS: BP 135/57
[2017-11-23 07:08] LABS: BASOPHILS 0.2 % (0-2); EOSINOPHILS 8.2 % (0-7); HEMATOCRIT 30.1 % (36.0-48.0); HEMOGLOBIN 9.5 g/dL (12-16); IMMATURE GRANULOCYTES 0.2 % (0-5); LYMPHOCYTES 24.9 % (15-50); MCH 27.6 pg (26.0-34.0); MCHC 31.6 g/dL (31.0-37.0); MCV 87.5 fL (80.0-100.0); MEAN PLATELET VOLUME 9.9 fL (7.4-10.4); MONOCYTES 8.8 % (2-11); NEUTROPHILS 57.7 % (40-80); PLATELET COUNT 158 10x3/uL (130-400); RBC 3.44 10x6/uL (4.00-5.40); RDW 15.8 % (11.5-14.5)
[2017-11-23 07:13] LABS: ANION GAP 10.3 mmol/L (8-16); CALCIUM 8.3 mg/dL (8.5-10.1); CARBON DIOXIDE 31.6 mmol/L (21.0-32.0); CREATININE - SERUM 6.6 mg/dL (0.6-1.3); POTASSIUM - SERUM 3.9 mmol/L (3.5-5.1)
[2017-11-23 11:44] VITALS: BP 131/70
[2017-11-23 17:53] VITALS: BP 120/56
[2017-11-23 23:36] VITALS: BP 125/56
[2017-11-24 05:51] VITALS: BP 143/56
[2017-11-24 12:20] VITALS: BP 131/73
[2017-11-24] MEDS ORDERED: HYDRALAZINE HCL10 MG PO (12:48)
== END 2017-11-24 14:00 | disposition home health service (06) | DRG 91 ==
LOC: D.REHAB 17:15
PROVIDERS: Emergency Medicine; Internal Medicine Nephrology
PROC: 5A1D70Z Performance of Urinary Filtration, Intermittent, Less than 6 Hours Per Day (ICD-10-PCS; principal; 2017-11-17)
DX: G72.81 Critical illness myopathy (principal); J96.21 Acute and chronic respiratory failure with hypoxia; N18.6 End stage renal disease; J81.1 Chronic pulmonary edema; I13.2 Hypertensive heart and chronic kidney disease with heart failure and with stage 5 chronic kidney disease, or end stage renal disease; I50.9 Heart failure, unspecified; Z99.2 Dependence on renal dialysis; I25.10 Atherosclerotic heart disease of native coronary artery without angina pectoris; J30.9 Allergic rhinitis, unspecified; E55.9 Vitamin D deficiency, unspecified; R53.81 Other malaise; D64.9 Anemia, unspecified; R80.9 Proteinuria, unspecified; D63.1 Anemia in chronic kidney disease

== ENCOUNTER → 2017-12-08 10:43 | Outpatient (CLI) | payer OTHER ==
[2017-11-16 13:18] VITALS: BMI 28.2
[~2017-12-08 10:43] MED LIST changes: +HYDRALAZINE HCL10 MG PO
[2017-12-08 12:10] LABS: HEMATOCRIT 34.8 % (36.0-48.0); HEMOGLOBIN 11.1 g/dL (12-16); MCH 27.5 pg (26.0-34.0); MCHC 31.9 g/dL (31.0-37.0); MCV 86.4 fL (80.0-100.0); MEAN PLATELET VOLUME 9.9 fL (7.4-10.4); RBC 4.03 10x6/uL (4.00-5.40); RDW 15.6 % (11.5-14.5); WBC 6.5 10x3/uL (4.8-10.8)
[2017-12-08 12:20] LABS: ALBUMIN 3.1 g/dL (3.4-5.0); ANION GAP 11.1 mmol/L (8-16); BILIRUBIN - TOTAL 0.55 mg/dL (0.2-1.3); CARBON DIOXIDE 31.4 mmol/L (21.0-32.0); POTASSIUM - SERUM 3.5 mmol/L (3.5-5.1); PROTEIN - SERUM 8.4 g/dL (6.4-8.2)
== END | disposition home or self-care (01) ==
LOC: D.RAD 08:00
PROVIDERS: Internal Medicine Cardiovascular Disease
DX: J91.8 Pleural effusion in other conditions classified elsewhere (principal); D64.9 Anemia, unspecified

== ENCOUNTER 2018-02-28 06:59 | Day surgery (SDC) | payer OTHER ==
[~2018-02-28] VITALS: Ht 170.2 cm; Wt 72.6 kg
--- NOTE | ~2018-02-28 | OP ---
PATIENT NAME: SHILO ARREOLA MEDICAL RECORD: [id number] :51 LOCATION:D[facility] ADMISSION DATE: SURGEON: SERA BARBER MD DATE OF OPERATION: 02/28/2018 SURGEON: Sera Barber MD ANESTHESIA: General with LMA per SUBMERSIBLE PILOT REFERRING PHYSICIAN: Stephany Berger MD and Adarsh Chavez MD PREOPERATIVE DIAGNOSIS: End-stage renal disease on dialysis. POSTOPERATIVE DIAGNOSIS: End-stage renal disease on dialysis. OPERATION PERFORMED: Second stage creation of right brachial artery to translocated basilic vein AV fistula. PREOPERATIVE NOTE: Ms. Arreola is a 62-year-old -[place] Citizen female from [place], [place]. She has end-stage renal disease and is on dialysis with a tunneled dialysis catheter. She has had a brachiobasilic AV fistula created, but not yet translocated. Plans for her to be returned to the operating room for translocation were put on hold when she had had heart surgery last summer. She is returned to the operating room now with plans to go ahead with the translocation. DESCRIPTION OF PROCEDURE: Under general anesthesia with the patient in supine position, she was prepped and draped in a sterile manner. She was examined with Duplex ultrasound and the course of the basilic vein noted. It was noted to be sufficiently dilated with really very few tributary veins. The skin was incised from axilla to antecubital space and the vein exposed and mobilized. It was quite arterialized from the last few months of arterial pressure and high flow. The cheney were thickened and the vein was somewhat shortened so that it proved impossible to mobilize it into much of a tunnel. During mobilization, it was necessary to clamp and divide a very large tributary brachial vein. This was ligated and suture ligated distally and the vein itself was repaired with a running 7-0 Prolene to preserve the lumen at that point. The vein was clamped, and then transected and bevelled, and mobilized anterior to the sensory nerve bundles and an end-to-end suture anastomosis performed. The vessel was flushed with heparinized saline and the anastomosis completed with running 7-0 Prolene with a triangulation technique. When completed and the occluding clamps were released, the suture lines were hemostatic and there was good flow in the fistula. The wound was irrigated with saline and then irrigated and infiltrated with 0.25% Marcaine with epinephrine, both with and without epinephrine. Subcutaneous tissues were approximated deep to the vein over the long length as feasible and the skin then closed over that with a running 4-0 Monocryl. The skin was further closed and sealed with Dermabond glue and dressed with Maxorb Ag, Tegaderm, and Cavilon skin prep. The patient was awakened and taken to the recovery room in stable condition. The patient's blood loss was about 10 cc, none replaced. All sponges, instruments and needles were accounted for. No surgical specimen was submitted for histopathology. No drain was utilized. PLAN: The patient will be discharged home today with a prescription for [facility] [id number] MAXWELLSHILO MACKENZIE and a return appointment to see me for followup next week. I will plan to schedule the patient for a fistulogram in 3-4 weeks to be done before we start using the fistula. TRANSINT:[id number] Voice Confirmation ID: [id number] DOCUMENT ID: [id number] SERA BARBER MD at 1150 CC: STEPHANY BERGER MD and ADARSH CHAVEZ [id number] DICTATION DATE: 02/28/18 1221 NITRATOR OPERATOR: 02/28/18 1330 [facility] 02/28/18 [facility] [address] [place] [address]
[2018-02-28 07:20] LABS: BASOPHILS 0.8 % (0-2); EOSINOPHILS 6.8 % (0-7); HEMATOCRIT 34.3 % (36.0-48.0); HEMOGLOBIN 10.9 g/dL (12-16); IMMATURE GRANULOCYTES 0.3 % (0-5); LYMPHOCYTES 30.8 % (15-50); MCH 28.5 pg (26.0-34.0); MCHC 31.8 g/dL (31.0-37.0); MCV 89.6 fL (80.0-100.0); MEAN PLATELET VOLUME 9.9 fL (7.4-10.4); MONOCYTES 5.5 % (2-11); NEUTROPHILS 55.8 % (40-80); RBC 3.83 10x6/uL (4.00-5.40); RDW 16.3 % (11.5-14.5); WBC 3.8 10x3/uL (4.8-10.8)
[2018-02-28 07:21] LABS: PLATELET COUNT 154 10x3/uL (130-400)
[2018-02-28 07:31] LABS: ANION GAP 16.8 mmol/L (8-16); CARBON DIOXIDE 27.6 mmol/L (21.0-32.0); CREATININE - SERUM 4.6 mg/dL (0.6-1.3); POTASSIUM - SERUM 4.4 mmol/L (3.5-5.1)
[2018-02-28 07:52] LABS: APTT 28.5 SECONDS (22.8-39.4); INR 1.07 (0.85-1.17); PROTIME 13.4 SECONDS (11.6-15.0)
[2018-02-28 08:24] VITALS: BP 152/75; Ht 170.2 cm; Wt 72.6 kg
== END 2018-02-28 16:45 | disposition home or self-care (01) ==
LOC: D.OPS 06:59
PROVIDERS: Surgery
DX: N18.6 End stage renal disease (principal); Z01.812 Encounter for preprocedural laboratory examination

== ENCOUNTER → 2018-12-26 09:24 | Outpatient (CLI) | payer MEDICARE, OTHER ==
[2018-02-28 08:24] VITALS: BMI 25.1
--- NOTE | 2018-12-27 11:08 | EC ---
PATIENT:SHILO ARREOLA DATE OF SERVICE: 12/26/18 SEX: F MEDICAL RECORD: [id number] DATE OF : [birth year] LOCATION:[facility] AGE OF PATIENT: 63 ADMISSION DATE: 12/26/18 REFERRING PHYSICIAN: INTERPRETING PHYSICIAN: NOHEMI BRINK MD ECHOCARDIOGRAM REPORT ECHO CHARGES 4 ECHO COMPLETE Date: 12/26/18 CLINICAL DIAGNOSIS: MVR (REPAIR) ECHOCARDIOGRAPHIC MEASUREMENTS (adult normal given) AC root (d.<3.7cm) 3.3 cm LV Septum d (<1.2 cm> 1.3 cm Valve Excursion 2.2 cm LV Septum (systole) 2.0 cm Left Atria (s.<4.0cm> 4.4 cm LVPW d(<1.2cm) 1.3 cm RV (d.<2.3cm) 2.8 cm LVPW (sytole) 2.1 cm LV diastole(<5.6CM) 6.2 cm MV E-F(>70mm/sec) cm LV systole 3.4 cm LVOT Diameter 1.8 cm MV exc.(>10mm) cm Est.ejection fraction (50-75%) % DOPPLER: LVIT cm/sec A 140 cm/sec E 240 cm/sec LA cm/sec RVSP 44.1 mmHg LVOT 142 cm/sec AOP1/2T m/s Asc. Ao 210 cm/sec RVOT 64.0 cm/sec RA cm/sec PA 136 cm/sec AV Gradient Peak 17.6 mmHg AV Mean 8.4 mmHg AV Area 1.8 cm MV Gradient Peak 24.0 mmHg MV Mean 6.4 mmHg MV Area cm COMMENTS: General Ophthalmologist: 1 PIYUSH WEBBOE Certified Ophthalmic Technician: 3 Dr. Paez TAPE# PACS Pericardial Effusion N DATE OF SERVICE: Adequate 2-D echo, Color-Flow and Spectral Doppler, and M-Mode LVH is present. LV internal dimension is normal. Wall motion is normal. EF is greater than or equal to 55%. Aortic valve sclerosis without stenosis by Doppler interrogation. Left atrium is dilated at 4.4 cm. Mitral valve, status post repair. Moderate MR is noted. Gradient across the mitral valve is 6.4. Right-sided chambers are grossly normal. Moderate TR is noted. ECHOCARDIOGRAM REPORT [id number] SHILO ARREOLA TRANSINT:[id number] Voice Confirmation ID: [id number] DOCUMENT ID: [id number] NOHEMI BRINK MD at 1108 CC: [id number] DICTATION DATE: 12/26/18 1454 PEDORTHIST: 12/27/18 0006 DEP CLI 12/26/18 [place] [id number] [place] [id number]
== END | disposition home or self-care (01) ==
LOC: D.ECHO 12-22 09:30
PROVIDERS: ATTEND Internal Medicine Cardiovascular Disease
DX: Z95.4 Presence of other heart-valve replacement (principal)